=== PATIENT | male | born 1960 | race Caucasian/White ===

== ENCOUNTER 2016-09-11 16:57 | Inpatient (IN) ==
[2016-09-11] MEDS ORDERED: *HR* Morphine 2 MG/ML SYRINGE IVP PRN (19:21)
[2016-09-11] MEDS ORDERED: Ondansetron 4 MG/2 ML VIAL IVP PRN ×2 (19:23→23:58)
[2016-09-11] MEDS ORDERED: 0.9 % Sodium Chloride 1,000 ML IVC SCH ×3 (19:30→23:58)
[2016-09-11] MEDS ORDERED: Acetaminophen IV 1,000 MG/100 ML INFUS..BTL IVPB ONE (20:01)
--- NOTE | 2016-09-11 21:49 | General Surg History&Physical ---
Date of Encounter: 09/11/16 Time of Encounter: 21:47 Assessment and Plan (1) Acute appendicitis Current Visit: No Status: Acute Plan for laparoscopic appendectomy. Risks, benefits, and expected outcomes explained to the patient and he agrees to proceed. The assessment and plan as outlined above was discussed with the patient and/or family members who expressed understanding and agreement. All questions were answered. Qualifiers: Qualified Code(s): K35.3 - Acute appendicitis with localized peritonitis History of Present Illness HPI: Mr. Posada is a 56 year old male that presents to the emergency department with 34 hours of right lower quadrant abdominal pain. He reports pain with coughing and any movement around his pelvis. He also admits to fever of 102. He denies any appetite at this point. He denies any nausea. He denies any emesis. His pain is moderate to severe and is sharp and aching in his right lower quadrant and the suprapubic region. Past Med Surg Social Fam HX - Past Medical History Medical history: hypertension Psychiatric history: no psych history - Past Surgical History Surgical History: other (Bilateral inguinal hernia as a child) - Social History Smoking Status: Never smoker Smokeless Tobacco Status: No Alcohol use: occasionally Drug use: none - Family History Mother Living Status: Still Living Hx Family Musculoskeletal Disorders: Yes (Arthritis) Hx Family Neurologic Disorders: Yes (Parkinsons) Medications and Allergies Valsartan [Diovan] 40 mg PO 02/14/16 [History] Allergies No Known Allergies Allergy (Verified 09/11/16 15:35) Review of Systems All systems PM: reviewed and no additional remarkable complaints except as stated All systems PM: A 10-system review of systems was performed and is negative for pertinent findings except as documented above in the HPI. General Surgery Exam Initial Vital Signs Temp Pulse Resp BP Pulse Ox 102.9 F H 98 14 166/108 100 09/11/16 19:13 09/11/16 19:13 09/11/16 19:13 09/11/16 19:13 09/11/16 19:13 - General physical appearance well nourished, no distress - Eyes PERRL, normal ocular movement - Neck no masses, trachea midline - Respiratory normal expansion, normal respiratory effort - Cardiovascular Cardiovascular exam: Present: RRR - Abdomen Abdomen general surgery: Present: soft, tender Abdominal Tenderness: Present: RLQ - Integumentary Integumentary general surgery: Present: warm and dry, no abnormal pigmentation - Neurologic Present: CN 2-12 grossly intact, normal sensation Results - Labs All other labs normal. - Imaging CT scan - abdomen: image reviewed CT scan - pelvis: image reviewed
[2016-09-11] MEDS ORDERED: *HR* Promethazine 25 MG/ML VIAL IVP PRN ×2 (21:51→23:58)
[2016-09-11] MEDS ORDERED: *HR* HYDROmorphone (PF) 1 MG/ML SYRINGE IVP PRN (21:51)
--- NOTE | 2016-09-11 21:54 | Anesthesia Evaluation PreOp ---
Date of Encounter: 09/11/16 Time of Encounter: 22:00 - Past History Planned Operation: Lap Appendectomy Cardiac History: HTN Pulmonary History: Denies Any Significant HX TURBINE ROOM ATTENDANT History: Denies Any Significant HX Other Medical History: Denies Any Significant HX Anesthesia History: No Prior Anesthetic Complications Alcohol Use: occasionally Drug use: none Medications and Allergies Valsartan [Diovan] 40 mg PO 02/14/16 [History] Allergies No Known Allergies Allergy (Verified 09/11/16 15:35) - Meds/Allergy Pre-op Review Medications Reviewed: Yes Allergies Reviewed: Yes Beta Blockers on Current Med List: No Anesthesia Results - Labs Laboratory Tests 09/11/16 09/11/16 16:16 16:16 Hgb 16.4 Hct 45.0 Plt Count 274 Sodium 140 Potassium 4.1 BUN 11 Creatinine 1.00 Anesthesia Exam O2 Sat Height 1.73 m Weight 81.828 kg O2 Sat by Pulse Oximetry 100 Vital Signs Temp Pulse Resp BP Pulse Ox 102.9 F H 98 14 166/108 100 09/11/16 19:13 09/11/16 19:13 09/11/16 19:13 09/11/16 19:13 09/11/16 19:13 Height: 5'8 Weight: 180 lbs NPO (# of Hours): MN Pain Scale: 0 - HEENT Pupil (Motor): Pupils equal, EOMI Mallampati: II Teeth: Normal Oral Opening: Greater than 3 - TURBINE ROOM ATTENDANT LOC: Oriented TURBINE ROOM ATTENDANT Motor: Normal RUE, Normal LUE, Normal RLE, Normal LLE, Normal Face TURBINE ROOM ATTENDANT Sensory: Normal: RUE, LUE, RLE, LLE, Face - Cardiac Rhythm: Regular Murmur: None JVD: No Carotid Bruit: No - Pulmonary Breath Sounds: bilateral Clear Respiratory Effort: Symmetrical Anesthesia Assess/Plan ASA Score: 2, E Modified [place] Scale for Level of Consciousness: Cooperative, oriented, and tranquil Anesthetic Plan: General Monitoring Plan: Standard Monitors Recovery Plan: PACU (Discussed GA, agrees to proceed)
[2016-09-11] MEDS ORDERED: *HR* Rocuronium Bromide 50 MG/5 ML VIAL ONE (21:59)
[2016-09-11] MEDS ORDERED: Lidocaine -MPF 2% 2 ML VIAL ONE (21:59)
[2016-09-11] MEDS ORDERED: Dexamethasone 4 MG/ML VIAL ONE (21:59)
[2016-09-11] MEDS ORDERED: Ondansetron 4 MG/2 ML VIAL ONE (21:59)
[2016-09-11] MEDS ORDERED: *HR* Succinylcholine 200 MG/10 ML VIAL IVP ONE (21:59)
[2016-09-11] MEDS ORDERED: *HR* HYDROmorphone 2 MG/ML SYRINGE ONE (21:59)
[2016-09-11] MEDS ORDERED: *HR* Propofol 200 MG/20 ML VIAL IVP ONE (21:59)
[2016-09-11] MEDS ORDERED: *HR* FentaNYL (PF) 100 MCG/2 ML VIAL ONE (21:59)
[2016-09-11] MEDS ORDERED: Lidocaine -MPF 4% 5 ML AMPUL ONE (22:01)
[2016-09-11] MEDS ORDERED: CefOXitin 2,000 MG VIAL IVPB ONE (22:09)
[2016-09-11] MEDS ORDERED: Neostigmine Methylsulfate 3 MG/3 ML SYRINGE ONE (22:51)
[2016-09-11] MEDS ORDERED: Ketorolac 30 MG/ML VIAL ONE (22:56)
--- NOTE | 2016-09-11 23:05 | Operative Note ---
Date of procedure: 09/11/16 Pre-op diagnosis: appendicitis Post-op diagnosis: same Procedure: laparoscopic appendectomy Anesthesia: FREDRICK Surgeon: Shahid Holman Estimated blood loss (cc): 125 Specimen: appendix Condition: stable Disposition: same day Procedure in Detail: After informed consent, patient was taken to the operating room placed in supine position. After adequate sedation anesthesia the abdomen was prepped and draped. A 12 mm cannula was placed in the umbilicus. A 5 mm cannulas placed in suprapubic region and the left lower quadrant. Camera was inserted and the abdomen after a pneumoperitoneum. 2 Mele graspers were used to identify the base of the appendix. A appendiceal window was created. A JHONY endoscopic stapler was placed across the base. A vascular load was placed across the mesoappendix. Once the appendix was was placed in an Endobag and removed through the umbilicus. The right lower quadrant was suctioned dry no bleeding was identified. Remainder the pneumoperitoneum was evacuated. The umbilicus was closed with an 0 Vicryl suture in [id number] fashion. Skin was closed with 4-0 Vicryl suture and Dermabond.
--- NOTE | 2016-09-11 23:26 | Anesthesia Evaluation Post Op ---
Date of Encounter: 09/11/16 Time of Encounter: 23:30 - Vital Signs Vital Signs: Vital Signs/O2 Sat/Glucose, Most Current Temp Pulse Resp BP Pulse Ox 09/11/16 23:12 98.8 F 87 15 135/92 96 - Lungs Lungs: Clear Ascult./Percussion - Airway Airway: Non-obstructed - Cardiovascular Regular Rate - Mental Status Mental Status: Alert & Oriented, Answers Appropriately - Pain Pain Scale: 0 - Nausea Vomiting Nausea Vomiting: Not Present - Hydration Hydration: Ice chips - Discharge PostOp Status: Transfer Patient to floor
[2016-09-12] MEDS ORDERED: Ketorolac 15 MG/ML VIAL IVP SCH
[2016-09-12] MEDS ORDERED: cefOXitin 2,000 MG in D5% in Water (Mini-Bag+) 100 ML IVPB SCH ×2
[2016-09-12] MEDS: Ketorolac 15 MG/ML VIAL IVP SCH ×2 (01:16→05:38)
[2016-09-12] MEDS: 0.9 % Sodium Chloride 1,000 ML IVC SCH ×2 (01:17→17:29)
[2016-09-12] MEDS ORDERED: 0.9 % Sodium Chloride 1,000 ML IVC ONE (03:46)
[2016-09-12] MEDS: Pantoprazole 40 MG VIAL IVP SCH (05:38)
[2016-09-12] MEDS ORDERED: Pantoprazole 40 MG VIAL IVP SCH (06:30)
--- NOTE | 2016-09-12 07:59 | General Surgery Progress Note ---
Date of Encounter: 09/12/16 Time of Encounter: 07:56 - Assessment and Plan (1) Acute appendicitis Current Visit: No Status: Acute Postop day 1 status post Laparoscopic Appendectomy Pain is well controlled at this time - Dilaudid - D/c toradol d/t rise in Cr since baseline prior to surgery Nothing by mouth except ice chips Faint BS on exam today but did have minimal flatus early in the morning. Will monitor for bowel function and progress as appropriate IV Cefoxitin IV fluids at 80 mL per hour Encouraged ICS and ambulation as tolerated. MAGI drain to bulb suction - 820 since yesterday - Bulb suction output is greater than 150 per hour then drain, and keep inflated on decompression Supportive care and management. Discharge planning- home once pain is well controlled, bowel function returns and is tolerating regular diet. Qualifiers: Acute appendicitis type: with localized peritonitis Qualified Code(s): K35.3 - Acute appendicitis with localized peritonitis (2) Hypotension Current Visit: Yes Status: Acute Over the night, patient became hypotensive with blood pressure of 75/54 and a pulse of 99. He was transferred to [facility] for monitoring with telemetry. He was bolused 1 L of normal saline with mild improvement. Blood pressure is 114/75 this morning. Asymptomatic at this time. Qualifiers: Hypotension type: unspecified hypotension type Qualified Code(s): I95.9 - Hypotension, unspecified (3) Leukocytosis Current Visit: Yes Status: Acute WBC today 14.8. Patient still on Cefoxitin Likely reflective of his acute appendicitis and surgical response Qualifiers: Leukocytosis type: unspecified Qualified Code(s): D72.829 - Elevated white blood cell count, unspecified (4) Abdominal pain Current Visit: No Status: Acute See above. Qualifiers: Abdominal location: lower abdomen, unspecified Qualified Code(s): R10.30 - Lower abdominal pain, unspecified Subjective Patient reports: feels better, pain is less, flatus, no bowel movement, afebrile Narrative: Patient is resting currently this morning with what bedside. Last night patient expressed a blood pressure 75/54 with a pulse of 99 was transferred down to [address] [place] [address] on telemetry. He is bolused 1 L normal saline. BP improved to 93/64. Denies any CP, SOB, n/v, lightheadedness. Objective Vital Signs - Last 8 Hours Temp Pulse Resp BP Pulse Ox 09/12/16 07:02 98.5 F 99 16 90/65 99 09/12/16 05:24 99.2 F 99 85/63 98 09/12/16 04:35 98.6 F 99 14 93/64 95 09/12/16 03:30 98.0 F 98 14 75/54 09/12/16 02:07 98.8 F 108 14 94/64 96 09/12/16 01:00 98.3 F 112 14 102/70 95 09/12/16 00:27 99.4 F 103 16 102/88 95 09/12/16 00:04 99.2 F 98 16 114/76 95 Intake and Output 09/11/16 09/11/16 09/12/16 15:59 23:59 07:59 Intake Total 100 / 100 1000 / 1000 Output Total 265 / 265 870 / 870 Balance -165 / -165 130 / 130 Intake: IV Fluids 100 / 100 1000 / 1000 0.9 % Sodium Chloride 1, 1000 / 1000 000 ML @ 80 mls/hr IVC . [id number] [facility] Rx#: [id number] Mefoxin 2,000 MG In 100 / 100 Dextrose 5% (Minibag+) 100 ML 100 ML @ 200 mls/ hr IVPB Q8HR [facility] Rx#: [id number] Oral 0 / 0 0 / 0 Output: Urine 0 / 0 150 / 150 Estimated Blood Loss 125 / 125 Wound Drainage 140 / 140 720 / 720 Left Lower Abdomen 720 / 720 Other: Weight 81.828 kg 82.1 kg Patient Weight 09/12/16 23:59 Weight 82.1 kg - General physical appearance well developed, well nourished, no distress - Eyes normal ocular movement - ENT normal mucosa - Neck Neck exam: trachea midline - Respiratory normal expansion, normal respiratory effort, clear to auscultation - Cardiovascular Cardiovascular exam: Present: RRR, no murmurs/rubs/gallops - Abdomen Abdomen: Present: soft, tender (Incisional. Trochar incisions c/d/i. No erythema or drainagae. MAGI drain intact in LLQ that is decompressed with minimal serosangious fluid. ). Absent: bowel sounds present - Neurologic normal coordination, normal sensation - Psychiatric oriented to time, oriented to person, oriented to place, speech is normal, memory intact - Labs 09/12/16 10:13 09/12/16 10:13 Vital Signs Temp Pulse Resp BP Pulse Ox 09/12/16 07:02 98.5 F 99 16 90/65 99 09/12/16 05:24 99.2 F 99 85/63 98 09/12/16 04:35 98.6 F 99 14 93/64 95 09/12/16 03:30 98.0 F 98 14 75/54 09/12/16 02:07 98.8 F 108 14 94/64 96 09/12/16 01:00 98.3 F 112 14 102/70 95 09/12/16 00:27 99.4 F 103 16 102/88 95 09/12/16 00:04 99.2 F 98 16 114/76 95 09/11/16 23:42 100.0 F H 98 16 106/81 93 09/11/16 23:32 98 16 119/82 94 09/11/16 23:22 102 16 124/74 94 09/11/16 23:12 98.8 F 87 15 135/92 96 09/11/16 19:13 102.9 F H 98 14 166/108 100 Intake and Output 09/11/16 09/12/16 09/12/16 23:59 07:59 15:59 Intake Total 100 / 100 1000 / 1000 Output Total 265 / 265 870 / 870 Balance -165 / -165 130 / 130 Intake: IV Fluids 100 / 100 1000 / 1000 0.9 % Sodium Chloride 1, 1000 / 1000 000 ML @ 80 mls/hr IVC . [id number] [facility] Rx#: [id number] Mefoxin 2,000 MG In 100 / 100 Dextrose 5% (Minibag+) 100 ML 100 ML @ 200 mls/ hr IVPB Q8HR [facility] Rx#: [id number] Oral 0 / 0 0 / 0 Output: Urine 0 / 0 150 / 150 Estimated Blood Loss 125 / 125 Wound Drainage 140 / 140 720 / 720 Left Lower Abdomen 720 / 720 Other: Weight 81.828 kg 82.1 kg Patient Weight 09/12/16 23:59 Weight 82.1 kg Consult Discharge Plan - Plan Referrals: Akira Shaffer MD [Primary Care Provider] -
[2016-09-12] MEDS: cefOXitin 2,000 MG in D5% in Water (Mini-Bag+) 100 ML IVPB SCH ×3 (08:15→23:18)
[2016-09-12] MEDS: *HR* HYDROmorphone (PF) 1 MG/ML SYRINGE IVP PRN ×2 (10:17→19:39)
[2016-09-12 10:21] LABS: Basophils % 0.1 %; Hematocrit 29.9 % (37.5-50.1); Hemoglobin 10.3 g/dL (12.9-16.9); Immature Granulocytes % 0.6 % (0-4); Lymphocytes % 6.7 %; Mean Corpuscular HGB Conc 34.4 g/dL (31.6-35.5); Mean Corpuscular Hemoglobin 31.8 pg (28.0-33.3); Mean Corpuscular Volume 92.3 fL (83.0-100.0); Mean Platelet Volume 9.7 fL (9.4-12.4); Monocytes # 0.9 K/mcL (0.0-1.3); Monocytes % 6.3 %; Neutrophils # 12.8 K/mcL (1.6-8.9); Platelet Count 221 K/mcL (140-400); Red Blood Count 3.24 M/mcL (4.19-5.50); Segmented Neutrophils % 86.3 %
[2016-09-12 10:32] LABS: BUN/Creatinine Ratio 14 (6-26); Blood Urea Nitrogen 18 mg/dL (8-26); Calcium 7.9 mg/dL (8.6-10.8); Carbon Dioxide 26 mEq/L (19-29); Chloride 108 mEq/L (98-109); Glucose 142 mg/dL (70-99); Osmolality,Calculated 290 (280-300); Potassium 4.6 mEq/L (3.5-4.5); Sodium 138 mEq/L (136-145); eGFR For African Americans > 60 (> 60); eGFR For Non-African Americans 60 (> 60)
[2016-09-12 10:50] LABS: Platelet Estimate Normal (Normal)
[2016-09-12] MEDS: *HR* Morphine 2 MG/ML SYRINGE IVP PRN (15:47)
[2016-09-13 04:34] LABS: Basophils % 0.1 %; Hematocrit 22.9 % (37.5-50.1); Hemoglobin 7.8 g/dL (12.9-16.9); Immature Granulocytes % 0.4 % (0-4); Lymphocytes # 1.1 K/mcL (0.6-4.6); Lymphocytes % 12.3 %; Mean Corpuscular HGB Conc 34.1 g/dL (31.6-35.5); Mean Corpuscular Hemoglobin 32.1 pg (28.0-33.3); Mean Corpuscular Volume 94.2 fL (83.0-100.0); Mean Platelet Volume 10.2 fL (9.4-12.4); Monocytes # 0.7 K/mcL (0.0-1.3); Monocytes % 7.5 %; Neutrophils # 7.3 K/mcL (1.6-8.9); Platelet Count 169 K/mcL (140-400); Red Blood Count 2.43 M/mcL (4.19-5.50); Segmented Neutrophils % 79.7 %
[2016-09-13 04:47] LABS: BUN/Creatinine Ratio 20 (6-26); Blood Urea Nitrogen 19 mg/dL (8-26); Calcium 8.1 mg/dL (8.6-10.8); Carbon Dioxide 28 mEq/L (19-29); Chloride 108 mEq/L (98-109); Glucose 119 mg/dL (70-99); Osmolality,Calculated 287 (280-300); Potassium 4.3 mEq/L (3.5-4.5); Sodium 137 mEq/L (136-145); eGFR For African Americans > 60 (> 60); eGFR For Non-African Americans > 60 (> 60)
[2016-09-13] MEDS: Pantoprazole 40 MG VIAL IVP SCH (06:19)
[2016-09-13] MEDS: *HR* HYDROmorphone (PF) 1 MG/ML SYRINGE IVP PRN (06:19)
[2016-09-13] MEDS: 0.9 % Sodium Chloride 1,000 ML IVC SCH ×3 (06:19→23:10)
[2016-09-13] MEDS: cefOXitin 2,000 MG in D5% in Water (Mini-Bag+) 100 ML IVPB SCH ×3 (06:20→22:13)
--- NOTE | 2016-09-13 10:44 | General Surgery Progress Note ---
Date of Encounter: 09/13/16 Time of Encounter: 10:42 - Assessment and Plan (1) Acute appendicitis Current Visit: No Status: Acute Postop day #2 status post Laparoscopic Appendectomy Pain is well controlled at this time - Dilaudid, Morphine Kidney function returned to baseline with Cr 1.25>0.95 Flatus noted per patient. BS heard on exam today. Will advance diet to clear liquids today. IV fluids at 80 mL per hour Encouraged ICS and ambulation as tolerated. MAGI drain to bulb suction - 440 since yesterday Supportive care and management. Discharge planning- home once pain is well controlled, maintains bowel function and is tolerating regular diet. Qualifiers: Acute appendicitis type: with localized peritonitis Qualified Code(s): K35.3 - Acute appendicitis with localized peritonitis (2) Postoperative anemia Current Visit: Yes Status: Acute Hgb dropped from 10.3->7.8. Asymptomatic at this time. Vital signs stable. Repeat am labs (3) Hypotension Current Visit: Yes Status: Acute Blood pressure is 125/84 this morning. Asymptomatic at this time. Qualifiers: Hypotension type: unspecified hypotension type Qualified Code(s): I95.9 - Hypotension, unspecified (4) Leukocytosis Current Visit: Yes Status: Acute WBC today 14.8>9.2. Will trend. Improving. Qualifiers: Leukocytosis type: unspecified Qualified Code(s): D72.829 - Elevated white blood cell count, unspecified (5) Abdominal pain Current Visit: No Status: Acute See above. Qualifiers: Abdominal location: lower abdomen, unspecified Qualified Code(s): R10.30 - Lower abdominal pain, unspecified Subjective Patient reports: feels better, still having pain, voiding w/o difficulty, flatus , no bowel movement, afebrile Narrative: 440cc out of MAGI overnight Objective Vital Signs - Last 8 Hours Temp Pulse Resp BP Pulse Ox 09/13/16 08:06 97 09/13/16 07:26 98.5 F 97 16 125/84 97 09/13/16 03:16 98.7 F 94 18 116/76 95 Intake and Output 09/12/16 09/13/16 09/13/16 23:59 07:59 15:59 Intake Total 115 / 115 1100 / 1100 Output Total 85 / 85 405 / 405 Balance 695 / 695 Intake: IV Fluids 100 / 100 1100 / 1100 0.9 % Sodium Chloride 1, 1000 / 1000 000 ML @ 80 mls/hr IVC . [id number] [facility] Rx#: [id number] Mefoxin 2,000 MG In 100 / 100 100 / 100 Dextrose 5% (Minibag+) 100 ML 100 ML @ 200 mls/ hr IVPB Q8H [facility] Rx#: [id number] Oral 15 / 15 0 / 0 Output: Urine 0 / 0 400 / 400 Wound Drainage 85 / 85 5 / 5 Left Lower Abdomen 85 / 85 5 / 5 Other: Weight 82.2 kg Blood Glucose* 127 111 Patient Weight 09/13/16 23:59 Weight 82.2 kg - General physical appearance well developed, well nourished, no distress - Eyes normal ocular movement - ENT normal mucosa - Neck Neck exam: trachea midline - Respiratory normal expansion, normal respiratory effort, clear to auscultation - Cardiovascular Cardiovascular exam: Present: RRR - Abdomen Abdomen: Present: bowel sounds present, soft, tender (incisional), wound ( trochar incisions c/d/i. No erythma or drianage. MAGI drain intact in LLQ) Additional Comments: diffuse ecchymosis noted about all abdominal quadrants - Neurologic CN 2-12 grossly intact - Psychiatric oriented to time, oriented to person, oriented to place, speech is normal, memory intact - Labs 09/13/16 04:03 09/13/16 04:03 Short CBC 09/13/16 09/12/16 Range/Units 04:03 10:13 WBC 9.2 (4.3-11.1) K/mcL Hgb 7.8 L D (12.9-16.9) g/dL Hct 22.9 L (37.5-50.1) % Plt Count 169 (140-400) K/mcL Neutrophils # 7.3 12.8 H (1.6-8.9) K/mcL BMP 09/13/16 Range/Units 04:03 Sodium 137 (136-145) mEq/L Potassium 4.3 (3.5-4.5) mEq/L Chloride 108 (98-109) mEq/L Carbon Dioxide 28 (19-29) mEq/L BUN 19 (8-26) mg/dL Creatinine 0.95 (0.72-1.25) mg/dL Glucose 119 H (70-99) mg/dL Calcium 8.1 L (8.6-10.8) mg/dL Vital Signs Temp Pulse Resp BP Pulse Ox 09/13/16 08:06 97 09/13/16 07:26 98.5 F 97 16 125/84 97 09/13/16 03:16 98.7 F 94 18 116/76 95 09/12/16 23:21 98.5 F 95 17 109/75 96 09/12/16 18:49 100.5 F H 106 17 120/78 95 09/12/16 15:57 100.2 F H 110 18 116/80 96 09/12/16 11:50 98.2 F 119 16 110/76 98 Intake and Output 09/12/16 09/13/16 09/13/16 23:59 07:59 15:59 Intake Total 115 / 115 1100 / 1100 Output Total 85 / 85 405 / 405 Balance 30 / 30 695 / 695 Intake: IV Fluids 100 / 100 1100 / 1100 0.9 % Sodium Chloride 1, 1000 / 1000 000 ML @ 80 mls/hr IVC . [id number] [facility] Rx#: [id number] Mefoxin 2,000 MG In 100 / 100 100 / 100 Dextrose 5% (Minibag+) 100 ML 100 ML @ 200 mls/ hr IVPB Q8H [facility] Rx#: [id number] Oral 0 / 0 Output: Urine 0 / 0 400 / 400 Wound Drainage 85 / 85 5 / 5 Left Lower Abdomen 85 / 85 5 / 5 Other: Weight 82.2 kg Blood Glucose* 127 111 Patient Weight 09/13/16 23:59 Weight 82.2 kg - VTE Documentation of Mechanical Device: Intermittent pneumatic compression device Consult Discharge Plan - Plan Referrals: Akira Shaffer MD [Primary Care Provider] -
[2016-09-13] MEDS: *HR* Morphine 2 MG/ML SYRINGE IVP PRN ×2 (14:36→22:13)
--- NOTE | 2016-09-13 15:10 | Electrocardiograph Report ---
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
[2016-09-14] MEDS: cefOXitin 2,000 MG in D5% in Water (Mini-Bag+) 100 ML IVPB SCH ×3 (06:07→23:10)
[2016-09-14] MEDS: Pantoprazole 40 MG VIAL IVP SCH (06:07)
[2016-09-14 06:15] LABS: Basophils % 0.1 %; Eosinophils % 0.6 %; Hematocrit 21.2 % (37.5-50.1); Hemoglobin 7.4 g/dL (12.9-16.9); Immature Granulocytes % 0.6 % (0-4); Lymphocytes # 1.1 K/mcL (0.6-4.6); Mean Corpuscular HGB Conc 34.9 g/dL (31.6-35.5); Mean Corpuscular Hemoglobin 31.9 pg (28.0-33.3); Mean Corpuscular Volume 91.4 fL (83.0-100.0); Mean Platelet Volume 10.2 fL (9.4-12.4); Monocytes # 0.6 K/mcL (0.0-1.3); Monocytes % 8.6 %; Neutrophils # 5.3 K/mcL (1.6-8.9); Platelet Count 182 K/mcL (140-400); Red Blood Count 2.32 M/mcL (4.19-5.50); Red Cell Distribution Width 11.6 % (11.5-14.5); Segmented Neutrophils % 74.1 %
[2016-09-14] MEDS: *HR* HYDROmorphone (PF) 1 MG/ML SYRINGE IVP PRN ×2 (06:18→21:44)
--- NOTE | 2016-09-14 09:47 | General Surgery Progress Note ---
Date of Encounter: 09/14/16 Time of Encounter: 09:30 - Assessment and Plan (1) Acute appendicitis Current Visit: No Status: Acute Postop day #3 status post Laparoscopic Appendectomy Continue supportive care Pain is well controlled at this time - Dilaudid prn Will stop morphine and add PO percocet. Kidney function returned to baseline with Cr 1.25>0.95 Continue IV fluids at 80 mL per hour Encouraged ICS and ambulation as tolerated. Flatus and BM per patient report. Advance diet as tolerated MAGI drain to bulb suction - noted 1155 output over 24 hours Repeat AM labs Discharge planning- home pending clinical course: once pain is well controlled, maintains bowel function, MAGI output is stabilized and is tolerating regular diet. Qualifiers: Acute appendicitis type: with localized peritonitis Qualified Code(s): K35.3 - Acute appendicitis with localized peritonitis (2) Postoperative anemia Current Visit: Yes Status: Acute See plan above. VSS Repeat am labs Will continue to monitor Subjective Patient reports: feels better, still having pain, pain is less, tolerating liquids well (States decreased appetite), voiding w/o difficulty, flatus, bowel movement Objective Vital Signs - Last 8 Hours Temp Pulse Resp BP Pulse Ox 09/14/16 08:00 95 09/14/16 06:30 99.3 F 94 18 130/93 97 09/14/16 04:19 99.2 F 96 16 133/91 95 Intake and Output 09/13/16 09/14/16 09/14/16 23:59 07:59 15:59 Intake Total 1540 / 1540 0 / 0 600 / 600 Output Total 725 / 725 Balance 1515 / 1515 -725 / -725 600 / 600 Intake: IV Fluids 1200 / 1200 0.9 % Sodium Chloride 1, 1000 / 1000 000 ML @ 80 mls/hr IVC . [id number] [facility] Rx#: [id number] Mefoxin 2,000 MG In 200 / 200 Dextrose 5% (Minibag+) 100 ML 100 ML @ 200 mls/ hr IVPB Q8H [facility] Rx#: [id number] Oral 340 / 340 0 / 0 600 / 600 Output: Urine 725 / 725 Wound Drainage Left Lower Abdomen Other: Meal Breakfast Percent of Meal Consumed 100% Stool Size Small Stool Consistency loose Stool Characteristics Mucoid Stool Color Brown # Voids 1 # Bowel Movements 1 Weight 76.1 kg 76.1 kg Blood Glucose* 124 107 Patient Weight 09/14/16 23:59 Weight 76.1 kg - General physical appearance well nourished, no distress (Sitting upright in chair at bedside) - Eyes normal ocular movement - ENT normal mucosa - Neck Neck exam: trachea midline - Respiratory normal expansion, normal respiratory effort, clear to auscultation - Cardiovascular Cardiovascular exam: Present: RRR - Abdomen Abdomen: Present: bowel sounds present, soft, tender (Expected post-operative tenderness) - Incision Incision: Present: clean and dry, intact - Integumentary no rash, no abnormal pigmentation - Neurologic CN 2-12 grossly intact - Musculoskeletal normal posture - Psychiatric oriented to time, oriented to person, oriented to place - Labs 09/14/16 05:38 09/13/16 04:03 - VTE Documentation of Mechanical Device: Intermittent pneumatic compression device Consult Discharge Plan - Plan Additional Instructions: pcp requested Referrals: Akira Shaffer MD [Primary Care Provider] -
[2016-09-14] MEDS: *HR* OxyCODONE/APAP 5/325 TABLET PO PRN (13:03)
[2016-09-14] MEDS: 0.9 % Sodium Chloride 1,000 ML IVC SCH (13:04)
[2016-09-15] MEDS: *HR* OxyCODONE/APAP 5/325 TABLET PO PRN ×3 (01:55→20:19)
[2016-09-15] MEDS: Pantoprazole 40 MG VIAL IVP SCH (05:03)
[2016-09-15] MEDS: *HR* HYDROmorphone (PF) 1 MG/ML SYRINGE IVP PRN ×3 (05:03→22:50)
[2016-09-15] MEDS: 0.9 % Sodium Chloride 1,000 ML IVC SCH ×2 (05:13→16:19)
[2016-09-15 05:48] LABS: Basophils % 0.2 %; Eosinophils # 0.1 K/mcL (0.0-0.6); Eosinophils % 0.9 %; Hematocrit 23.6 % (37.5-50.1); Hemoglobin 8.1 g/dL (12.9-16.9); Immature Granulocytes % 0.8 % (0-4); Lymphocytes # 1.6 K/mcL (0.6-4.6); Lymphocytes % 18.1 %; Mean Corpuscular HGB Conc 34.3 g/dL (31.6-35.5); Mean Corpuscular Hemoglobin 30.7 pg (28.0-33.3); Mean Corpuscular Volume 89.4 fL (83.0-100.0); Mean Platelet Volume 9.5 fL (9.4-12.4); Monocytes % 11.4 %; Neutrophils # 5.9 K/mcL (1.6-8.9); Platelet Count 283 K/mcL (140-400); Red Blood Count 2.64 M/mcL (4.19-5.50); Red Cell Distribution Width 11.4 % (11.5-14.5); Segmented Neutrophils % 68.6 %
[2016-09-15 06:05] LABS: BUN/Creatinine Ratio 8 (6-26); Calcium 8.2 mg/dL (8.6-10.8); Carbon Dioxide 27 mEq/L (19-29); Chloride 101 mEq/L (98-109); Glucose 115 mg/dL (70-99); Osmolality,Calculated 275 (280-300); Potassium 3.5 mEq/L (3.5-4.5); Sodium 133 mEq/L (136-145); eGFR For African Americans > 60 (> 60); eGFR For Non-African Americans > 60 (> 60)
[2016-09-15 06:07] LABS: Blood Urea Nitrogen 7 mg/dL (8-26)
--- NOTE | 2016-09-15 07:50 | General Surgery Progress Note ---
Date of Encounter: 09/15/16 Time of Encounter: 07:47 - Assessment and Plan (1) Acute appendicitis Current Visit: No Status: Acute Postop day #4 status post Laparoscopic Appendectomy Pain is well controlled at this time - Dilaudid, Percocet Kidney function - Cr 0.87 Diet to full liquids. Tolerating well. BM and flatus present IV fluids at 80 mL per hour Encouraged ICS and ambulation as tolerated. MAGI drain to bulb suction - 10cc since last night. Slight change in coloration and heading towards serosanginous Supportive care and management. Discharge planning - Home tomorrow once MAGI drain has appropriate drainage and color and pain is well controlled. Patient is mostly concerned about pain control at this time. Qualifiers: Acute appendicitis type: with localized peritonitis Qualified Code(s): K35.3 - Acute appendicitis with localized peritonitis (2) Postoperative fever Current Visit: Yes Status: Acute Temp 102.5 at 9:30pm last night. Nursing states his sheets were soaked in the middle of the night and this morning his temp is 100.0. Will W&W for now. Concern for possible abscess with the amount of drainage present and timing postoperative. Consider US vs CT if temp rises. (3) Postoperative anemia Current Visit: Yes Status: Acute Improving. Hgb trend from 10.3->7.8>7.4>8.1. Asymptomatic at this time. Vital signs stable. Will continue to follow (4) Hypotension Current Visit: Yes Status: Acute Blood pressure is 126/81 this morning. Asymptomatic at this time. Qualifiers: Hypotension type: unspecified hypotension type Qualified Code(s): I95.9 - Hypotension, unspecified (5) Leukocytosis Current Visit: Yes Status: Acute Resolved. Qualifiers: Leukocytosis type: unspecified Qualified Code(s): D72.829 - Elevated white blood cell count, unspecified (6) Abdominal pain Current Visit: No Status: Acute See above. Qualifiers: Abdominal location: lower abdomen, unspecified Qualified Code(s): R10.30 - Lower abdominal pain, unspecified Subjective Patient reports: feels better, still having pain, tolerating liquids well, voiding w/o difficulty, flatus, bowel movement, fever (102.5 last night) Narrative: MAGI drain with 10 mL output overnight Objective Vital Signs - Last 8 Hours Temp Pulse Resp BP Pulse Ox 09/15/16 06:24 100 F H 105 18 126/81 96 09/15/16 03:45 99.6 F 102 16 122/84 97 09/15/16 00:24 102.1 F H 104 16 128/90 95 Intake and Output 09/14/16 09/14/16 09/15/16 15:59 23:59 07:59 Intake Total 1979 / 1979 200 / 200 1000 / 1000 Output Total 226 / 226 0 / 0 Balance 1754 / 1754 200 / 200 990 / 990 Intake: IV Fluids 1100 / 1100 200 / 200 1000 / 1000 0.9 % Sodium Chloride 1, 1000 / 1000 1000 / 1000 000 ML @ 80 mls/hr IVC . [id number] DIPTI Rx#: [id number] Mefoxin 2,000 MG In 100 / 100 200 / 200 Dextrose 5% (Minibag+) 100 ML 100 ML @ 200 mls/ hr IVPB Q8H DIPTI Rx#: [id number] Oral 880 / 880 0 / 0 0 / 0 Output: Urine 200 / 200 Wound Drainage 0 / 0 Left Lower Abdomen 0 / 0 Other: Meal Lunch Percent of Meal Consumed 75% # Voids 0 0 Weight 76.1 kg 76.5 kg Blood Glucose* 109 112 110 Patient Weight 09/15/16 23:59 Weight 76.5 kg - General physical appearance well developed, well nourished, no distress - Eyes normal ocular movement - ENT normal mucosa - Neck Neck exam: trachea midline - Respiratory normal expansion, normal respiratory effort, clear to auscultation - Cardiovascular Cardiovascular exam: Present: RRR - Abdomen Abdomen: Present: bowel sounds present, soft, tender (Incisional), wound ( Midline incision - clean dry and intact. No erythema or drainage. MAGI drain presentin LLQ) - Integumentary other (scattered ecchymosis present about abdomen) - Neurologic CN 2-12 grossly intact - Psychiatric oriented to time, oriented to person, oriented to place, speech is normal, memory intact - Labs 09/15/16 05:18 09/15/16 05:18 Short CBC 09/15/16 Range/Units 05:18 WBC 8.6 (4.3-11.1) K/mcL Hgb 8.1 L (12.9-16.9) g/dL Hct 23.6 L (37.5-50.1) % Plt Count 283 D (140-400) K/mcL Neutrophils # 5.9 (1.6-8.9) K/mcL BMP 09/15/16 Range/Units 05:18 Sodium 133 L (136-145) mEq/L Potassium 3.5 (3.5-4.5) mEq/L Chloride 101 (98-109) mEq/L Carbon Dioxide 27 (19-29) mEq/L BUN 7 L D (8-26) mg/dL Creatinine 0.87 (0.72-1.25) mg/dL Glucose 115 H (70-99) mg/dL Calcium 8.2 L (8.6-10.8) mg/dL Vital Signs Temp Pulse Resp BP Pulse Ox 09/15/16 06:24 100 F H 105 18 126/81 96 09/15/16 03:45 99.6 F 102 16 122/84 97 09/15/16 00:24 102.1 F H 104 16 128/90 95 09/14/16 21:32 102.5 F H 109 18 135/91 99 09/14/16 16:42 99.9 F H 96 20 98 09/14/16 08:00 95 Intake and Output 09/14/16 09/14/16 09/15/16 15:59 23:59 07:59 Intake Total 1979 200 / 200 1000 / 1000 Output Total 226 / 226 0 / 0 Balance 1754 / 1754 200 / 200 990 / 990 Intake: IV Fluids 1100 / 1100 200 / 200 1000 / 1000 0.9 % Sodium Chloride 1, 1000 / 1000 1000 / 1000 000 ML @ 80 mls/hr IVC . [id number] DIPTI Rx#: [id number] Mefoxin 2,000 MG In 100 / 100 200 / 200 Dextrose 5% (Minibag+) 100 ML 100 ML @ 200 mls/ hr IVPB Q8H DIPTI Rx#: [id number] Oral 880 / 880 0 / 0 0 / 0 Output: Urine 200 / 200 Wound Drainage 0 / 0 Left Lower Abdomen 0 / 0 Other: Meal Lunch Percent of Meal Consumed 75% # Voids 0 0 Weight 76.1 kg 76.5 kg Blood Glucose* 109 112 110 Patient Weight 09/15/16 23:59 Weight 76.5 kg - VTE Documentation of Mechanical Device: Intermittent pneumatic compression device Consult Discharge Plan - Plan Additional Instructions: pcp requested Referrals: Jacqueline Aparicio CNP [Advanced Practice Nurse] - 09/20/16 10:30 am Akira Shaffer MD [Primary Care Provider] - 12/13/16 1:00 pm (,s)
[2016-09-15] MEDS: cefOXitin 2,000 MG in D5% in Water (Mini-Bag+) 100 ML IVPB SCH ×2 (08:08→16:13)
[2016-09-15] MEDS ORDERED: Ibuprofen 600 MG TABLET PO PRN (12:14)
[2016-09-15] MEDS: Ibuprofen 600 MG TABLET PO SCH (22:50)
[2016-09-16] MEDS: cefOXitin 2,000 MG in D5% in Water (Mini-Bag+) 100 ML IVPB SCH ×2 (00:50→06:19)
[2016-09-16] MEDS: *HR* OxyCODONE/APAP 5/325 TABLET PO PRN ×4 (01:20→20:50)
[2016-09-16] MEDS: Pantoprazole 40 MG VIAL IVP SCH (06:18)
[2016-09-16] MEDS: 0.9 % Sodium Chloride 1,000 ML IVC SCH (06:30)
[2016-09-16 07:02] LABS: BUN/Creatinine Ratio 9 (6-26); Blood Urea Nitrogen 8 mg/dL (8-26); Calcium 8.5 mg/dL (8.6-10.8); Carbon Dioxide 29 mEq/L (19-29); Chloride 102 mEq/L (98-109); Glucose 121 mg/dL (70-99); Osmolality,Calculated 282 (280-300); Potassium 3.7 mEq/L (3.5-4.5); Sodium 136 mEq/L (136-145); eGFR For African Americans > 60 (> 60); eGFR For Non-African Americans > 60 (> 60)
[2016-09-16 07:03] LABS: Basophils % 0.2 %; Eosinophils # 0.1 K/mcL (0.0-0.6); Eosinophils % 0.8 %; Hematocrit 22.2 % (37.5-50.1); Hemoglobin 7.9 g/dL (12.9-16.9); Immature Granulocytes % 0.5 % (0-4); Lymphocytes # 0.9 K/mcL (0.6-4.6); Lymphocytes % 7.2 %; Mean Corpuscular HGB Conc 35.6 g/dL (31.6-35.5); Mean Corpuscular Hemoglobin 31.7 pg (28.0-33.3); Mean Corpuscular Volume 89.2 fL (83.0-100.0); Mean Platelet Volume 9.8 fL (9.4-12.4); Monocytes # 1.3 K/mcL (0.0-1.3); Neutrophils # 9.5 K/mcL (1.6-8.9); Platelet Count 310 K/mcL (140-400); Red Blood Count 2.49 M/mcL (4.19-5.50); Red Cell Distribution Width 11.6 % (11.5-14.5); Segmented Neutrophils % 80.3 %
[2016-09-16] MEDS: Ibuprofen 600 MG TABLET PO SCH ×3 (09:31→23:47)
--- NOTE | 2016-09-16 11:37 | General Surgery Progress Note ---
Date of Encounter: 09/16/16 Time of Encounter: 10:30 - Assessment and Plan (1) Acute appendicitis Current Visit: No Status: Acute Postop day #5 status post Laparoscopic Appendectomy Pain is well controlled at this time - Dilaudid, Percocet Kidney function - Cr 0.85 Diet to advanced soft. Tolerating well. BM and flatus present IV fluids at 80 mL per hour Encouraged ICS and ambulation as tolerated. MAGI drain to bulb suction - 25cc since last night. Supportive care and management. Repeat am labs CT of the abdomen and pelvis with IV contrast on 09/16/2016 demonstrates the MAGI drain extending into the right lower quadrant of the abdomen. Areas of hemorrhage were noted in the right lower quadrant, right side of the pelvis, as well as a focal hematoma along the left mid abdomen measuring 6.1 x 4.3 cm. There is also a leak of contrast from the loop of small bowel in the right lower quadrant of the abdomen that is concerning for a small bowel injury. At this point, with the presence of a fever, leukocytosis and intra-abdominal hematomas present on POD#5, I am suspicious for possible infected hematoma. Will discontinue cefoxitin and begin Cipro and Flagyl. In the setting of a possible small bowel perforation, we will proceed with a short window of observation with conservative management to include serial abdominal exams to look for progressively worsening abdominal pain, hemodynamic instability or intolerance of oral intake. Qualifiers: Acute appendicitis type: with localized peritonitis Qualified Code(s): K35.3 - Acute appendicitis with localized peritonitis (2) Postoperative fever Current Visit: Yes Status: Acute Temperature 2 nights ago was 102.5 and resolved in the morning. Again, patient experienced a spike in temperature to 12.1 last night and has resolved. (3) Postoperative anemia Current Visit: Yes Status: Acute Hgb trend from 10.3->7.8>7.4>8.1>7.9. Asymptomatic at this time. Vital signs stable. Will continue to follow (4) Hypotension Current Visit: Yes Status: Acute Blood pressure well controlled. Asymptomatic at this time. Qualifiers: Hypotension type: unspecified hypotension type Qualified Code(s): I95.9 - Hypotension, unspecified (5) Leukocytosis Current Visit: Yes Status: Acute Trending up today 8.6>11.8. See above. Qualifiers: Leukocytosis type: unspecified Qualified Code(s): D72.829 - Elevated white blood cell count, unspecified (6) Abdominal pain Current Visit: No Status: Acute See above. Qualifiers: Abdominal location: lower abdomen, unspecified Qualified Code(s): R10.30 - Lower abdominal pain, unspecified Subjective Patient reports: feels better, still having pain, tolerating a regular diet ( advanced soft), flatus, bowel movement (one yesterday), fever (102.1 last night. 97.9 this morning) Objective Vital Signs - Last 8 Hours Temp Pulse Resp BP Pulse Ox 09/16/16 06:52 97.9 F 96 17 102/69 97 09/16/16 04:00 98.4 F 101 17 143/97 Intake and Output 09/15/16 09/16/16 09/16/16 23:59 07:59 15:59 Intake Total 1940 / 1940 1300 / 1300 Output Total 777 / 777 749 / 749 49 / 49 Balance 1163 / 1163 551 / 551 -49 / -49 Intake: IV Fluids 1100 / 1100 1100 / 1100 0.9 % Sodium Chloride 1, 1000 / 1000 1000 / 1000 000 ML @ 80 mls/hr IVC . [id number] DIPTI Rx#: [id number] Mefoxin 2,000 MG In 100 / 100 100 / 100 Dextrose 5% (Minibag+) 100 ML 100 ML @ 200 mls/ hr IVPB Q8H DIPTI Rx#: [id number] Oral 840 / 840 200 / 200 Output: Urine 700 / 700 725 / 725 Wound Drainage 49 / 49 Left Lower Abdomen 49 49 Other: Meal Dinner Percent of Meal Consumed 70% # Voids 1 Weight 84.6 kg Blood Glucose* 134 116 136 Patient Weight 09/16/16 23:59 Weight 84.6 kg - General physical appearance well developed, well nourished, no distress - Eyes normal ocular movement - ENT normal mucosa - Neck Neck exam: trachea midline, no lymphadectomy - Respiratory normal expansion, normal respiratory effort, clear to auscultation - Cardiovascular Cardiovascular exam: Present: RRR - Abdomen Abdomen: Present: bowel sounds present, soft, tender (RLQ, ecchymosis improved throghout abdomen), wound (MAGI drain present and intact. 25 output since last night) - Incision Incision: Present: clean and dry, intact - Neurologic CN 2-12 grossly intact - Labs 09/16/16 06:01 09/16/16 06:01 Diabetes panel 09/16/16 Range/Units 06:01 Sodium 136 (136-145) mEq/L Potassium 3.7 (3.5-4.5) mEq/L Chloride 102 (98-109) mEq/L Carbon Dioxide 29 (19-29) mEq/L BUN 8 (8-26) mg/dL Creatinine 0.85 (0.72-1.25) mg/dL Glucose 121 H (70-99) mg/dL Calcium 8.5 L (8.6-10.8) mg/dL Calcium panel 09/16/16 Range/Units 06:01 Calcium 8.5 L (8.6-10.8) mg/dL Pituitary panel 09/16/16 Range/Units 06:01 Sodium 136 (136-145) mEq/L Potassium 3.7 (3.5-4.5) mEq/L Chloride 102 (98-109) mEq/L Carbon Dioxide 29 (19-29) mEq/L BUN 8 (8-26) mg/dL Creatinine 0.85 (0.72-1.25) mg/dL Glucose 121 H (70-99) mg/dL Calcium 8.5 L (8.6-10.8) mg/dL Adrenal panel 09/16/16 Range/Units 06:01 Sodium 136 (136-145) mEq/L Potassium 3.7 (3.5-4.5) mEq/L Chloride 102 (98-109) mEq/L Carbon Dioxide 29 (19-29) mEq/L BUN 8 (8-26) mg/dL Creatinine 0.85 (0.72-1.25) mg/dL Glucose 121 H (70-99) mg/dL Calcium 8.5 L (8.6-10.8) mg/dL - VTE Documentation of Mechanical Device: Intermittent pneumatic compression device Consult Discharge Plan - Plan Additional Instructions: pcp requested Referrals: Jacqueline Aparicio CNP [Advanced Practice Nurse] - 09/20/16 10:30 am Akira Shaffer MD [Primary Care Provider] - 12/13/16 1:00 pm (,s)
[2016-09-16] MEDS: MetroNIDAZOLE 500 MG/100 ML 500 MG/100 ML BAG IVPB SCH ×2 (16:41→23:47)
[2016-09-17] MEDS: *HR* OxyCODONE/APAP 5/325 TABLET PO PRN ×4 (04:05→18:41)
[2016-09-17] MEDS: Pantoprazole 40 MG VIAL IVP SCH (05:53)
[2016-09-17 06:11] LABS: Basophils % 0.1 %; Eosinophils # 0.1 K/mcL (0.0-0.6); Eosinophils % 0.8 %; Hematocrit 21.5 % (37.5-50.1); Hemoglobin 7.5 g/dL (12.9-16.9); Immature Granulocytes % 1.1 % (0-4); Lymphocytes # 0.9 K/mcL (0.6-4.6); Lymphocytes % 7.3 %; Mean Corpuscular HGB Conc 34.9 g/dL (31.6-35.5); Mean Corpuscular Hemoglobin 31.3 pg (28.0-33.3); Mean Corpuscular Volume 89.6 fL (83.0-100.0); Mean Platelet Volume 9.4 fL (9.4-12.4); Monocytes # 1.1 K/mcL (0.0-1.3); Monocytes % 8.5 %; Neutrophils # 10.6 K/mcL (1.6-8.9); Platelet Count 367 K/mcL (140-400); Red Cell Distribution Width 11.8 % (11.5-14.5); Segmented Neutrophils % 82.2 %
[2016-09-17 06:16] LABS: BUN/Creatinine Ratio 10 (6-26); Blood Urea Nitrogen 8 mg/dL (8-26); Calcium 8.5 mg/dL (8.6-10.8); Carbon Dioxide 25 mEq/L (19-29); Chloride 103 mEq/L (98-109); Glucose 109 mg/dL (70-99); Osmolality,Calculated 281 (280-300); Potassium 3.8 mEq/L (3.5-4.5); Sodium 136 mEq/L (136-145); eGFR For African Americans > 60 (> 60); eGFR For Non-African Americans > 60 (> 60)
[2016-09-17] MEDS ORDERED: Fluconazole 200 MG/100 ML 200 MG/100 ML BAG IVPB ONE ×2 (08:10→08:30)
[2016-09-17] MEDS: Ibuprofen 600 MG TABLET PO SCH ×3 (08:14→23:17)
[2016-09-17] MEDS: MetroNIDAZOLE 500 MG/100 ML 500 MG/100 ML BAG IVPB SCH ×3 (08:15→23:17)
--- NOTE | 2016-09-17 08:17 | General Surgery Progress Note ---
Date of Encounter: 09/17/16 Time of Encounter: 07:30 - Assessment and Plan (1) Acute appendicitis Current Visit: Yes Status: Acute Postop day #6 status post Laparoscopic Appendectomy Continue supportive care -Pain is well controlled at this time - Ibuprofen (fevers) and percocet -Add Diflucan 200 mg x1 today and 100 mg 09/18/2016 -PICC today and start TPN today -D/C maintenance IVF when TPN at goal -Continue MAGI drain to bulb suction Repeat AM labs Encouraged ICS and ambulation as tolerated. Will transfer to D/c telemetry Discharge planning- home pending clinical course: once pain is well controlled, maintains bowel function, MAGI output is stabilized and is tolerating regular diet. Qualifiers: Acute appendicitis type: with localized peritonitis Qualified Code(s): K35.3 - Acute appendicitis with localized peritonitis (2) Postoperative anemia Current Visit: Yes Status: Acute See plan above. VSS Repeat am labs Will continue to monitor (3) At risk for nutrition deficiency Current Visit: Yes Status: Acute Postop day #6 status post Laparoscopic Appendectomy Continue supportive care: pt denies appetite at this time. Will add parental nutrition -PICC today and start TPN today -D/C maintenance IVF when TPN at goal Repeat AM labs (4) Depressed mood Current Visit: Yes Status: Acute Begin celexa 20 mg today Subjective Patient reports: feels better, still having pain, pain is less, flatus, bowel movement, other (Denies appetite. Is tearful. States he has some intermittent depression for which he takes no medications.) Objective Vital Signs - Last 8 Hours Temp Pulse Resp BP Pulse Ox 09/17/16 07:00 99.2 F 107 16 114/74 98 09/17/16 04:26 98.2 F 103 16 110/66 98 Intake and Output 09/16/16 09/17/16 09/17/16 23:59 07:59 15:59 Intake Total 100 / 100 Output Total Balance 95 / 95 -55 / -55 Intake: IV Fluids 100 / 100 Flagyl Premix 500 MG/100 100 / 100 ML 500 mg In 100 ml @ 100 mls/hr IVPB Q8HR DIPTI Rx# :[id number] Output: Wound Drainage Left Lower Abdomen Other: Weight 87.1 kg Blood Glucose* 107 112 Patient Weight 09/17/16 23:59 Weight 87.1 kg - General physical appearance well developed, no distress, moderate pain - Eyes normal ocular movement - ENT normal mucosa - Neck Neck exam: trachea midline - Respiratory normal expansion, normal respiratory effort, clear to auscultation - Cardiovascular Cardiovascular exam: Present: tachycardia, regular rhythm - Abdomen Abdomen: Present: bowel sounds present, soft, tender (RLQ sharp), wound (MAGI drain with bloody output) - Incision Incision: Present: clean and dry, intact - Integumentary no rash - Neurologic CN 2-12 grossly intact - Musculoskeletal normal gait, normal posture - Psychiatric oriented to time, oriented to person, oriented to place - Labs 09/17/16 05:18 09/17/16 05:18 Diabetes panel 09/17/16 Range/Units 05:18 Sodium 136 (136-145) mEq/L Potassium 3.8 (3.5-4.5) mEq/L Chloride 103 (98-109) mEq/L Carbon Dioxide 25 (19-29) mEq/L BUN 8 (8-26) mg/dL Creatinine 0.80 (0.72-1.25) mg/dL Glucose 109 H (70-99) mg/dL Calcium 8.5 L (8.6-10.8) mg/dL Calcium panel 09/17/16 Range/Units 05:18 Calcium 8.5 L (8.6-10.8) mg/dL Pituitary panel 09/17/16 Range/Units 05:18 Sodium 136 (136-145) mEq/L Potassium 3.8 (3.5-4.5) mEq/L Chloride 103 (98-109) mEq/L Carbon Dioxide 25 (19-29) mEq/L BUN 8 (8-26) mg/dL Creatinine 0.80 (0.72-1.25) mg/dL Glucose 109 H (70-99) mg/dL Calcium 8.5 L (8.6-10.8) mg/dL Adrenal panel 09/17/16 Range/Units 05:18 Sodium 136 (136-145) mEq/L Potassium 3.8 (3.5-4.5) mEq/L Chloride 103 (98-109) mEq/L Carbon Dioxide 25 (19-29) mEq/L BUN 8 (8-26) mg/dL Creatinine 0.80 (0.72-1.25) mg/dL Glucose 109 H (70-99) mg/dL Calcium 8.5 L (8.6-10.8) mg/dL - VTE Documentation of Mechanical Device: Intermittent pneumatic compression device Consult Discharge Plan - Plan Additional Instructions: pcp requested Referrals: Jacqueline Aparicio CNP [Advanced Practice Nurse] - 09/20/16 10:30 am Akira Shaffer MD [Primary Care Provider] - 12/13/16 1:00 pm (,s)
[2016-09-17] MEDS ORDERED: D10% in Water 500 ML IVC PRN (09:55)
[2016-09-17] MEDS ORDERED: Lidocaine -MPF 1% 5 ML AMPUL INFILT ONE (10:13)
[2016-09-17 11:42] LABS: Magnesium 1.2 mg/dL (1.6-2.6); Phosphorous 2.5 mg/dL (2.3-4.7)
[2016-09-17] MEDS: 0.9 % Sodium Chloride 1,000 ML IVC SCH (12:14)
[2016-09-17] MEDS ORDERED: Magnesium Sulfate 2 GM in D5% in Water 100 ML IVPB ONE (13:32)
[2016-09-17] MEDS ORDERED: Clinimix E 5%-20% SOLUTION 2,000 ML with MVI, adult with vitamin K 10 ML IVC SCH (17:00)
[2016-09-18] MEDS: 0.9 % Sodium Chloride 1,000 ML IVC SCH (01:09)
[2016-09-18] MEDS: *HR* OxyCODONE/APAP 5/325 TABLET PO PRN ×4 (04:10→21:55)
[2016-09-18 04:15] LABS: Basophils % 0.1 %; Eosinophils # 0.1 K/mcL (0.0-0.6); Eosinophils % 1.2 %; Hematocrit 20.4 % (37.5-50.1); Hemoglobin 7.2 g/dL (12.9-16.9); Immature Granulocytes % 1.1 % (0-4); Lymphocytes % 8.5 %; Mean Corpuscular HGB Conc 35.3 g/dL (31.6-35.5); Mean Corpuscular Hemoglobin 31.2 pg (28.0-33.3); Mean Corpuscular Volume 88.3 fL (83.0-100.0); Mean Platelet Volume 9.3 fL (9.4-12.4); Monocytes # 0.8 K/mcL (0.0-1.3); Monocytes % 6.5 %; Platelet Count 425 K/mcL (140-400); Red Blood Count 2.31 M/mcL (4.19-5.50); Red Cell Distribution Width 11.9 % (11.5-14.5); Segmented Neutrophils % 82.6 %
[2016-09-18 04:20] LABS: Neutrophils # 9.8 K/mcL (1.6-8.9)
[2016-09-18 04:29] LABS: Magnesium 1.9 mg/dL (1.6-2.6); Phosphorous 3.1 mg/dL (2.3-4.7)
[2016-09-18 04:30] LABS: BUN/Creatinine Ratio 9 (6-26); Blood Urea Nitrogen 7 mg/dL (8-26); Calcium 8.3 mg/dL (8.6-10.8); Carbon Dioxide 27 mEq/L (19-29); Chloride 102 mEq/L (98-109); Glucose 151 mg/dL (70-99); Osmolality,Calculated 283 (280-300); Potassium 3.2 mEq/L (3.5-4.5); Sodium 136 mEq/L (136-145); eGFR For African Americans > 60 (> 60); eGFR For Non-African Americans > 60 (> 60)
[2016-09-18 04:54] LABS: Reactive Lymphocytes Present (Not Present)
[2016-09-18 04:56] LABS: Anisocytosis 1+ (Not Present)
[2016-09-18] MEDS: Pantoprazole 40 MG VIAL IVP SCH (05:17)
[2016-09-18] MEDS: Ibuprofen 600 MG TABLET PO SCH ×2 (07:50→15:38)
[2016-09-18] MEDS: MetroNIDAZOLE 500 MG/100 ML 500 MG/100 ML BAG IVPB SCH ×2 (07:54→16:27)
--- NOTE | 2016-09-18 07:58 | General Surgery Progress Note ---
<Johnnie Avalos - Last Filed: 09/18/16 11:33> Date of Encounter: 09/18/16 Time of Encounter: 07:56 - Assessment and Plan (1) Acute appendicitis Current Visit: Yes Status: Acute Postop day #7 status post Laparoscopic Appendectomy Pain is well controlled at this time - Dilaudid, Percocet Kidney function - Cr 0.78 Patient is on a clear liquid diet and advance as tolerated. Patient did have a bowel movement this morning with bowel sounds on exam today. TPN started yesterday - currently at 50 mL per hour and will increase to 75 tomorrow. Once that target fluids we can stop his IVF Encouraged ICS and ambulation as tolerated. MAGI drain to bulb suction - 60cc since yesterday afternoon. Supportive care and management. Continue to monitor for progressively worsening abdominal pain or hemodynamic instability We will continue Flagyl and Cipro. One-time dose of fluconazole 200 mg followed by scheduled dosing of fluconazole 100 was given Disposition - With patient trending down his leukocytosis and elevated temperatures, along with his present clinical condition, no additional surgical intervention is required such as a second drain placement. We will continue the current treatment plan as we await the return of his appetite to be able to wean off TPN. Qualifiers: Acute appendicitis type: with localized peritonitis Qualified Code(s): K35.3 - Acute appendicitis with localized peritonitis (2) Postoperative fever Current Visit: Yes Status: Acute Temperature is 98.5 this morning with no fever noted last night. Patient did not have excessive diaphoresis (3) Postoperative anemia Current Visit: Yes Status: Acute Hgb trend from 10.3->7.8>7.4>8.1>7.9>7.5>7.2. Asymptomatic at this time and is likely dilution effect from I&Os. Vital signs stable. Will continue to follow (4) Hypotension Current Visit: Yes Status: Acute Blood pressure well controlled. Asymptomatic at this time. Qualifiers: Hypotension type: unspecified hypotension type Qualified Code(s): I95.9 - Hypotension, unspecified (5) Leukocytosis Current Visit: Yes Status: Acute Trending back down 8.6>11.8>12.8>11.8. See above. Qualifiers: Leukocytosis type: unspecified Qualified Code(s): D72.829 - Elevated white blood cell count, unspecified (6) Abdominal pain Current Visit: No Status: Acute See above. Qualifiers: Abdominal location: lower abdomen, unspecified Qualified Code(s): R10.30 - Lower abdominal pain, unspecified (7) Hypokalemia Current Visit: Yes Status: Acute Potassium 2.2 this morning. We will replace with 40 mEq over 4 hours 2 today. Recheck in the morning. Subjective Narrative: Patient was transitioned to 3A yesterday and has no new complaints overnight. He states that he had a bowel movement yesterday. Abdominal pain is still present but slightly better than yesterday. He denies any appetite and "I will throw up if I smell any food". TPN currently at 50. Denies any headache, chest pain, shortness of breath, lightheadedness, difficulty urinating, lower extremity edema or pain. Objective Vital Signs - Last 8 Hours Temp Pulse Resp BP Pulse Ox 09/18/16 07:05 93 09/18/16 06:33 98.5 F 99 16 125/82 93 09/18/16 04:13 98.5 F 97 16 129/81 95 Intake and Output 09/17/16 09/17/16 09/18/16 15:59 23:59 07:59 Intake Total 2660 / 2660 100 / 100 1207 / 1207 Output Total 25 / 25 305 / 305 655 / 655 Balance 2635 / 2635 -205 / -205 552 / 552 Intake: IV Fluids 300 / 300 100 / 100 1207 / 1207 Clinimix E 5%-20% 657 / 657 SOLUTION 2,000 ML @ 50 mls/hr IVC .Q24H DIPTI with M.v.i. Adult 10 ml Rx#: [id number] Cipro Premix 400 MG/200 200 / 200 200 / 200 ML 400 mg In 200 ml @ 200 mls/hr IVPB Q12H DIPTI Rx# :[id number] Intralipid 20% 250 ML @ 250 / 250 21 mls/hr IVPB MoWeFr@ 1700 DIPTI Rx#:[id number] Flagyl Premix 500 MG/100 100 / 100 100 / 100 100 / 100 ML 500 mg In 100 ml @ 100 mls/hr IVPB Q8HR DIPTI Rx# :[id number] Oral 2360 / 2360 0 / 0 0 / 0 Output: Urine 275 / 275 650 / 650 Wound Drainage 5 / 5 Left Lower Abdomen 5 / Other: Meal Breakfast Percent of Meal Consumed 100% # Voids 3 # Bowel Movements 0 Weight 86.7 kg Blood Glucose* 174 186 Patient Weight 09/18/16 23:59 Weight 86.7 kg - General physical appearance well developed, well nourished, no distress - Eyes normal ocular movement - ENT normal mucosa - Neck Neck exam: trachea midline - Respiratory normal expansion, normal respiratory effort, clear to auscultation - Cardiovascular Cardiovascular exam: Present: RRR - Abdomen Abdomen: Present: bowel sounds present, soft, tender (Incisional), wound ( Trocar incisions are clean dry and intact. No evidence of dehiscence, erythema or drainage. MAGI drain is intact and left lower quadrant with dark blood present ) - Neurologic CN 2-12 grossly intact - Psychiatric oriented to time, oriented to person, oriented to place, speech is normal, memory intact - Labs 09/18/16 03:30 09/18/16 03:30 Short CBC 09/18/16 Range/Units 03:30 WBC 11.8 H (4.3-11.1) K/mcL Hgb 7.2 L (12.9-16.9) g/dL Hct 20.4 L (37.5-50.1) % Plt Count 425 H (140-400) K/mcL Neutrophils # 9.8 H (1.6-8.9) K/mcL BMP 09/18/16 Range/Units 03:30 Sodium 136 (136-145) mEq/L Potassium 3.2 L (3.5-4.5) mEq/L Chloride 102 (98-109) mEq/L Carbon Dioxide 27 (19-29) mEq/L BUN 7 L (8-26) mg/dL Creatinine 0.78 (0.72-1.25) mg/dL Glucose 151 H (70-99) mg/dL Calcium 8.3 L (8.6-10.8) mg/dL Vital Signs Temp Pulse Resp BP Pulse Ox 09/18/16 07:05 93 09/18/16 06:33 98.5 F 99 16 125/82 93 09/18/16 04:13 98.5 F 97 16 129/81 95 09/17/16 23:26 98.2 F 101 16 135/83 95 09/17/16 20:49 97 09/17/16 19:05 99.5 F 118 16 138/85 97 09/17/16 15:05 100 16 117/82 98 09/17/16 12:23 98.3 F 103 16 121/78 96 Intake and Output 09/17/16 09/17/16 09/18/16 15:59 23:59 07:59 Intake Total 2660 / 2660 100 / 100 1207 / 1207 Output Total 305 / 305 655 / 655 Balance 2635 / 2635 -205 / -205 552 / 552 Intake: IV Fluids 300 / 300 100 / 100 1207 / 1207 Clinimix E 5%-20% 657 / 657 SOLUTION 2,000 ML @ 50 mls/hr IVC .Q24H DIPTI with M.v.i. Adult 10 ml Rx#: [id number] Cipro Premix 400 MG/200 200 / 200 200 / 200 ML 400 mg In 200 ml @ 200 mls/hr IVPB Q12H DIPTI Rx# :[id number] Intralipid 20% 250 ML @ 250 / 250 21 mls/hr IVPB MoWeFr@ 1700 DIPTI Rx#:[id number] Flagyl Premix 500 MG/100 100 / 100 100 / 100 100 / 100 ML 500 mg In 100 ml @ 100 mls/hr IVPB Q8HR DIPTI Rx# :[id number] Oral 2360 / 2360 0 / 0 0 / 0 Output: Urine 275 / 275 650 / 650 Wound Drainage 30 / 30 5 / 5 Left Lower Abdomen 30 30 5 / 5 Other: Meal Breakfast Percent of Meal Consumed 100% # Voids 3 # Bowel Movements 0 Weight 86.7 kg Blood Glucose* 174 186 Patient Weight 09/18/16 23:59 Weight 86.7 kg - VTE Documentation of Mechanical Device: Intermittent pneumatic compression device Consult Discharge Plan - Plan Additional Instructions: pcp requested Referrals: Jacqueline Aparicio CNP [Advanced Practice Nurse] - 09/20/16 10:30 am Akira Shaffer MD [Primary Care Provider] - 12/13/16 1:00 pm (,s) <Abhilash Nickerson - Last Filed: 09/19/16 12:38> Date of Encounter: 09/19/16 Objective Vital Signs - Last 8 Hours Temp Pulse Resp BP Pulse Ox 09/19/16 10:36 99.2 F 94 16 148/90 97 09/19/16 06:43 99.4 F 101 16 155/94 98 Intake and Output 09/18/16 09/19/16 09/19/16 23:59 07:59 15:59 Intake Total 716 / 716 1637 / 1637 825 / 825 Output Total 1160 / 1160 600 / 600 250 / 250 Balance -444 / -444 1037 / 1037 575 / 575 Intake: IV Fluids 656 / 656 1637 / 1637 465 / 465 Clinimix E 5%-20% 256 / 256 1037 / 1037 315 / 315 SOLUTION 2,000 ML @ 75 mls/hr IVC .Q24H DIPTI with M.v.i. Adult 10 ml Rx#: [id number] Cipro Premix 400 MG/200 200 / 200 200 / 200 ML 400 mg In 200 ml @ 200 mls/hr IVPB Q12H DIPTI Rx# :[id number] Diflucan 100 MG/50 ML 100 50 / 50 mg In 50 ml @ 50 mls/hr IVPB DAILY DIPTI Rx#: [id number] Flagyl Premix 500 MG/100 100 / 100 100 / 100 100 / 100 ML 500 mg In 100 ml @ 100 mls/hr IVPB Q8HR DIPTI Rx# :[id number] Potassium Chloride 10 mEq 100 / 100 300 / 300 /100mL 10 meq In 100 ml @ 100 mls/hr IVPB Q1H DIPTI Rx#:[id number] Oral 60 / 60 360 / 360 Output: Urine 1150 / 1150 600 / 600 250 / 250 Wound Drainage 10 / 10 0 / 0 0 / 0 Left Lower Abdomen 10 / 10 0 / 0 0 / 0 Other: Meal Breakfast # Bowel Movements 0 0 Weight 87.3 kg 87.3 kg Blood Glucose* 176 144 156 Patient Weight 09/19/16 23:59 Weight 87.3 kg - Labs 09/18/16 03:30 09/19/16 03:10 Diabetes panel 09/19/16 Range/Units 03:10 Sodium 137 (136-145) mEq/L Potassium 3.5 (3.5-4.5) mEq/L Chloride 102 (98-109) mEq/L Carbon Dioxide 29 (19-29) mEq/L BUN 8 (8-26) mg/dL Creatinine 0.77 (0.72-1.25) mg/dL Glucose 110 H (70-99) mg/dL Calcium 8.6 (8.6-10.8) mg/dL Calcium panel 09/19/16 Range/Units 03:10 Calcium 8.6 (8.6-10.8) mg/dL Phosphorus 3.2 (2.3-4.7) mg/dL Pituitary panel 09/19/16 Range/Units 03:10 Sodium 137 (136-145) mEq/L Potassium 3.5 (3.5-4.5) mEq/L Chloride 102 (98-109) mEq/L Carbon Dioxide 29 (19-29) mEq/L BUN 8 (8-26) mg/dL Creatinine 0.77 (0.72-1.25) mg/dL Glucose 110 H (70-99) mg/dL Calcium 8.6 (8.6-10.8) mg/dL Adrenal panel 09/19/16 Range/Units 03:10 Sodium 137 (136-145) mEq/L Potassium 3.5 (3.5-4.5) mEq/L Chloride 102 (98-109) mEq/L Carbon Dioxide 29 (19-29) mEq/L BUN 8 (8-26) mg/dL Creatinine 0.77 (0.72-1.25) mg/dL Glucose 110 H (70-99) mg/dL Calcium 8.6 (8.6-10.8) mg/dL - Attending Attestation I examined this patient and my medical decision-making was reviewed with the Resident Physician. I agree with the documented findings, disposition and treatment plan as described except to the extent set forth below. I reviewed the above assessment and evaluation with the resident present. Patient states pain has decreased. Mild to moderate RLQ pain to palpation noted. Noted mass present on examination in the RLQ consistent with the CT scan evidence of a hematoma. Continue with conservative therapy. Continue with IV abx. On TPN and clears. Awaiting return of bowel function.
[2016-09-18] MEDS: Fluconazole 100 MG/50 ML 100 MG/50 ML BAG IVPB SCH (08:57)
[2016-09-18] MEDS ORDERED: Clinimix E 5%-20% SOLUTION 2,000 ML with MVI, adult with vitamin K 10 ML IVC SCH (17:00)
[2016-09-19] MEDS: Ibuprofen 600 MG TABLET PO SCH ×4 (00:04→23:45)
[2016-09-19] MEDS: MetroNIDAZOLE 500 MG/100 ML 500 MG/100 ML BAG IVPB SCH ×4 (00:04→23:46)
[2016-09-19 04:03] LABS: BUN/Creatinine Ratio 10 (6-26); Blood Urea Nitrogen 8 mg/dL (8-26); Calcium 8.6 mg/dL (8.6-10.8); Carbon Dioxide 29 mEq/L (19-29); Chloride 102 mEq/L (98-109); Glucose 110 mg/dL (70-99); Magnesium 1.8 mg/dL (1.6-2.6); Osmolality,Calculated 283 (280-300); Phosphorous 3.2 mg/dL (2.3-4.7); Potassium 3.5 mEq/L (3.5-4.5); Sodium 137 mEq/L (136-145); eGFR For African Americans > 60 (> 60); eGFR For Non-African Americans > 60 (> 60)
[2016-09-19] MEDS: Pantoprazole 40 MG VIAL IVP SCH (05:26)
[2016-09-19] MEDS: *HR* OxyCODONE/APAP 5/325 TABLET PO PRN ×3 (08:20→20:05)
[2016-09-19] MEDS: Fluconazole 100 MG/50 ML 100 MG/50 ML BAG IVPB SCH (08:21)
--- NOTE | 2016-09-19 08:25 | General Surgery Progress Note ---
<Johnnie Avalos - Last Filed: 09/19/16 12:39> Date of Encounter: 09/19/16 Time of Encounter: 08:32 - Assessment and Plan (1) Acute appendicitis Current Visit: Yes Status: Inactive Postop day #7 status post Laparoscopic Appendectomy Pain is well controlled at this time - Dilaudid, Percocet Kidney function - Cr 0.77 Advanced to full liquid diet. Still no appetite present. 2 bowel movements were noted. Holding his Colace for today. TPN at goal 75. Discontinued his IV fluids Encouraged ICS and ambulation as tolerated. MAGI drain to bulb suction - 30cc output Supportive care and management. Continue to monitor for progressively worsening abdominal pain We will continue Flagyl, Cipro and fluconazole. Disposition - We will continue the current treatment plan as we await the return of his appetite to be able to wean off TPN. Qualifiers: Acute appendicitis type: with localized peritonitis Qualified Code(s): K35.3 - Acute appendicitis with localized peritonitis (2) Postoperative anemia Current Visit: Yes Status: Acute Hgb trend from 10.3->7.8>7.4>8.1>7.9>7.5>7.2. Asymptomatic at this time and is likely dilution effect from I&Os. Last 24- hour I/O balance yielded +2300. Vital signs stable. Rechecking CBC tomorrow morning (3) Leukocytosis Current Visit: Yes Status: Acute Trending back down 8.6>11.8>12.8>11.8. Rechecking CBC tomorrow morning Qualifiers: Leukocytosis type: unspecified Qualified Code(s): D72.829 - Elevated white blood cell count, unspecified (4) Abdominal pain Current Visit: No Status: Inactive See above. Qualifiers: Abdominal location: lower abdomen, unspecified Qualified Code(s): R10.30 - Lower abdominal pain, unspecified (5) Depressed mood Current Visit: Yes Status: Acute Patient was started on Celexa on Tuesday. (6) At risk for nutrition deficiency Current Visit: Yes Status: Acute TPN at goal of 70 per hour. No appetite right now. Advance diet to full liquids. (7) Hypokalemia Current Visit: Yes Status: Acute Potassium was 3.5 this morning after 40 mEq 2 were given yesterday. Continue to follow. (8) Postoperative fever Current Visit: Yes Status: Resolved Resolved (9) Hypotension Current Visit: Yes Status: Acute Blood pressure well controlled. Asymptomatic at this time. Qualifiers: Hypotension type: unspecified hypotension type Qualified Code(s): I95.9 - Hypotension, unspecified Subjective Patient reports: still having pain, pain is less, voiding w/o difficulty, flatus , bowel movement (2), nausea, afebrile Narrative: Patient is walking around room comfortably this morning. He states that thought of food makes him nauseous. Denies any appetite. He voices his understanding that he needs to be able to eat to be discharged. Objective Vital Signs - Last 8 Hours Temp Pulse Resp BP Pulse Ox 09/19/16 06:43 99.4 F 101 16 155/94 98 09/19/16 04:13 98.9 F 97 17 137/83 96 Intake and Output 09/18/16 09/19/16 09/19/16 23:59 07:59 15:59 Intake Total 716 / 716 1637 / 1637 Output Total 1160 / 1160 600 / 600 Balance -444 / -444 1037 / 1037 Intake: IV Fluids 656 / 656 1637 / 1637 Clinimix E 5%-20% 256 / 256 1037 / 1037 SOLUTION 2,000 ML @ 75 mls/hr IVC .Q24H DIPTI with M.v.i. Adult 10 ml Rx#: [id number] Cipro Premix 400 MG/200 200 / 200 200 / 200 ML 400 mg In 200 ml @ 200 mls/hr IVPB Q12H DIPTI Rx# :[id number] Flagyl Premix 500 MG/100 100 / 100 100 / 100 ML 500 mg In 100 ml @ 100 mls/hr IVPB Q8HR DIPTI Rx# :[id number] Potassium Chloride 10 mEq 100 / 100 300 / 300 /100mL 10 meq In 100 ml @ 100 mls/hr IVPB Q1H DIPTI Rx#:[id number] Oral 60 / 60 Output: Urine 1150 / 1150 600 / 600 Wound Drainage 10 / 10 0 / 0 Left Lower Abdomen 10 / 10 0 / 0 Other: # Bowel Movements 0 Weight 87.3 kg Blood Glucose* 176 144 Patient Weight 09/19/16 23:59 Weight 87.3 kg - General physical appearance well developed, well nourished, no distress - Eyes normal ocular movement - ENT atraumatic, normocephalic - Neck Neck exam: trachea midline - Respiratory normal expansion, normal respiratory effort, clear to auscultation - Cardiovascular Cardiovascular exam: Present: RRR - Abdomen Abdomen: Present: bowel sounds present, soft, tender, wound (MAGI drain intact) Abdominal Tenderness: RLQ, LLQ - Incision Incision: Present: clean and dry - Integumentary other (Warm and dry) - Neurologic CN 2-12 grossly intact - Psychiatric oriented to time, oriented to person, oriented to place, speech is normal, memory intact - Labs 09/18/16 03:30 09/19/16 03:10 BMP 09/19/16 Range/Units 03:10 Sodium 137 (136-145) mEq/L Potassium 3.5 (3.5-4.5) mEq/L Chloride 102 (98-109) mEq/L Carbon Dioxide 29 (19-29) mEq/L BUN 8 (8-26) mg/dL Creatinine 0.77 (0.72-1.25) mg/dL Glucose 110 H (70-99) mg/dL Calcium 8.6 (8.6-10.8) mg/dL Vital Signs Temp Pulse Resp BP Pulse Ox 09/19/16 06:43 99.4 F 101 16 155/94 98 09/19/16 04:13 98.9 F 97 17 137/83 96 09/18/16 23:52 99.3 F 99 18 146/90 93 09/18/16 21:00 95 09/18/16 19:18 98.9 F 105 16 146/88 95 09/18/16 15:13 98 09/18/16 14:39 99.0 F 101 16 146/89 98 09/18/16 10:45 97 09/18/16 10:35 98.4 F 90 16 147/92 97 Intake and Output 09/18/16 09/19/16 09/19/16 23:59 07:59 15:59 Intake Total 716 / 716 1637 / 1637 Output Total 1160 / 1160 600 / 600 Balance -444 / -444 1037 / 1037 Intake: IV Fluids 656 / 656 1637 / 1637 Clinimix E 5%-20% 256 / 256 1037 / 1037 SOLUTION 2,000 ML @ 75 mls/hr IVC .Q24H DIPTI with M.v.i. Adult 10 ml Rx#: [id number] Cipro Premix 400 MG/200 200 / 200 200 / 200 ML 400 mg In 200 ml @ 200 mls/hr IVPB Q12H DIPTI Rx# :[id number] Flagyl Premix 500 MG/100 100 / 100 100 / 100 ML 500 mg In 100 ml @ 100 mls/hr IVPB Q8HR DIPTI Rx# :[id number] Potassium Chloride 10 mEq 100 / 100 300 / 300 /100mL 10 meq In 100 ml @ 100 mls/hr IVPB Q1H DIPTI Rx#:[id number] Oral 60 / 60 Output: Urine 1150 / 1150 600 / 600 Wound Drainage 10 / 10 0 / 0 Left Lower Abdomen 10 / 10 0 / 0 Other: # Bowel Movements 0 Weight 87.3 kg Blood Glucose* 176 144 Patient Weight 09/19/16 23:59 Weight 87.3 kg - VTE Documentation of Mechanical Device: Intermittent pneumatic compression device Consult Discharge Plan - Plan Additional Instructions: pcp requested Referrals: Jacqueline Aparicio CNP [Advanced Practice Nurse] - 09/20/16 10:30 am Akira Shaffer MD [Primary Care Provider] - 12/13/16 1:00 pm (,s) <Abhilash Nickerson M - Last Filed: 09/20/16 12:19> Date of Encounter: 09/20/16 Objective Vital Signs - Last 8 Hours Temp Pulse Resp BP Pulse Ox 09/20/16 10:49 100.2 F H 105 16 151/80 98 09/20/16 05:02 99.5 F 100 17 143/91 96 Intake and Output 09/19/16 09/20/16 09/20/16 23:59 07:59 15:59 Intake Total 703 / 703 1004 / 1004 1190 / 1190 Output Total 1050 / 1050 20 / 20 Balance 703 / 703 -46 / -46 1170 / 1170 Intake: IV Fluids 703 / 703 1004 / 1004 150 / 150 Clinimix E 5%-20% 603 / 603 704 / 704 SOLUTION 2,000 ML @ 75 mls/hr IVC .Q24H DIPTI with M.v.i. Adult 10 ml Rx#: [id number] Cipro Premix 400 MG/200 200 / 200 ML 400 mg In 200 ml @ 200 mls/hr IVPB Q12H DIPTI Rx# :[id number] Diflucan 100 MG/50 ML 100 50 / 50 mg In 50 ml @ 50 mls/hr IVPB DAILY DIPTI Rx#: [id number] Flagyl Premix 500 MG/100 100 / 100 100 / 100 100 / 100 ML 500 mg In 100 ml @ 100 mls/hr IVPB Q8HR DIPTI Rx# :[id number] Oral 0 / 0 0 / 0 1040 / 1040 Output: Urine 1050 / 1050 0 / 0 Wound Drainage 0 / 0 20 / 20 Left Lower Abdomen 0 / 0 Other: Meal Full Percent of Meal Consumed 5% Stool Size Moderate Stool Consistency formed Stool Characteristics Normal for Patient Stool Color Brown # Voids 1 # Bowel Movements 1 0 0 Weight 82.3 kg Blood Glucose* 141 163 149 Patient Weight 09/20/16 23:59 Weight 82.3 kg - Labs 09/20/16 03:20 09/20/16 03:20 Diabetes panel 09/20/16 Range/Units 03:20 Sodium 137 (136-145) mEq/L Potassium 3.5 (3.5-4.5) mEq/L Chloride 102 (98-109) mEq/L Carbon Dioxide 29 (19-29) mEq/L BUN 11 (8-26) mg/dL Creatinine 0.73 (0.72-1.25) mg/dL Glucose 122 H (70-99) mg/dL Calcium 8.2 L (8.6-10.8) mg/dL Calcium panel 09/20/16 Range/Units 03:20 Calcium 8.2 L (8.6-10.8) mg/dL Phosphorus 3.6 (2.3-4.7) mg/dL Pituitary panel 09/20/16 Range/Units 03:20 Sodium 137 (136-145) mEq/L Potassium 3.5 (3.5-4.5) mEq/L Chloride 102 (98-109) mEq/L Carbon Dioxide 29 (19-29) mEq/L BUN 11 (8-26) mg/dL Creatinine 0.73 (0.72-1.25) mg/dL Glucose 122 H (70-99) mg/dL Calcium 8.2 L (8.6-10.8) mg/dL Adrenal panel 09/20/16 Range/Units 03:20 Sodium 137 (136-145) mEq/L Potassium 3.5 (3.5-4.5) mEq/L Chloride 102 (98-109) mEq/L Carbon Dioxide 29 (19-29) mEq/L BUN 11 (8-26) mg/dL Creatinine 0.73 (0.72-1.25) mg/dL Glucose 122 H (70-99) mg/dL Calcium 8.2 L (8.6-10.8) mg/dL - Attending Attestation I examined this patient and my medical decision-making was reviewed with the Resident Physician. I agree with the documented findings, disposition and treatment plan as described except to the extent set forth below. I reviewed the above assessment and evaluation with the resident. Patient states that he feels overall better. Increased mobility. Appetite is slowly returning. Noted hemoglobin decreased but this is related to the patient's positive fluid balance. Continue to monitor. Follow WBC. Continue IV antibiotics.
[2016-09-19] MEDS ORDERED: Clinimix E 5%-20% SOLUTION 2,000 ML with MVI, adult with vitamin K 10 ML IVC SCH (17:00)
[2016-09-19 17:39] LABS: Basophils % 0.1 %; Eosinophils # 0.1 K/mcL (0.0-0.6); Hematocrit 22.6 % (37.5-50.1); Hemoglobin 7.5 g/dL (12.9-16.9); Immature Granulocytes % 0.8 % (0-4); Immature Platelets 1.7 % (1.1-6.1); Lymphocytes # 1.1 K/mcL (0.6-4.6); Lymphocytes % 7.9 %; Mean Corpuscular HGB Conc 33.2 g/dL (31.6-35.5); Mean Corpuscular Hemoglobin 30.2 pg (28.0-33.3); Mean Corpuscular Volume 91.1 fL (83.0-100.0); Monocytes % 7.3 %; Neutrophils # 11.9 K/mcL (1.6-8.9); Platelet Count 702 K/mcL (140-400); Red Blood Count 2.48 M/mcL (4.19-5.50); Red Cell Distribution Width 12.5 % (11.5-14.5); Segmented Neutrophils % 82.9 %
[2016-09-20 03:45] LABS: Basophils % 0.1 %; Eosinophils # 0.2 K/mcL (0.0-0.6); Eosinophils % 1.3 %; Hematocrit 20.7 % (37.5-50.1); Hemoglobin 7.1 g/dL (12.9-16.9); Immature Granulocytes % 1.2 % (0-4); Lymphocytes # 1.5 K/mcL (0.6-4.6); Lymphocytes % 9.6 %; Mean Corpuscular HGB Conc 34.3 g/dL (31.6-35.5); Mean Corpuscular Hemoglobin 31.3 pg (28.0-33.3); Mean Corpuscular Volume 91.2 fL (83.0-100.0); Mean Platelet Volume 9.3 fL (9.4-12.4); Monocytes # 1.3 K/mcL (0.0-1.3); Monocytes % 8.2 %; Neutrophils # 12.4 K/mcL (1.6-8.9); Platelet Count 678 K/mcL (140-400); Red Blood Count 2.27 M/mcL (4.19-5.50); Red Cell Distribution Width 12.8 % (11.5-14.5); Segmented Neutrophils % 79.6 %
[2016-09-20 04:00] LABS: BUN/Creatinine Ratio 15 (6-26); Blood Urea Nitrogen 11 mg/dL (8-26); Calcium 8.2 mg/dL (8.6-10.8); Carbon Dioxide 29 mEq/L (19-29); Chloride 102 mEq/L (98-109); Glucose 122 mg/dL (70-99); Magnesium 1.7 mg/dL (1.6-2.6); Osmolality,Calculated 285 (280-300); Phosphorous 3.6 mg/dL (2.3-4.7); Potassium 3.5 mEq/L (3.5-4.5); Sodium 137 mEq/L (136-145); eGFR For African Americans > 60 (> 60); eGFR For Non-African Americans > 60 (> 60)
[2016-09-20] MEDS: Pantoprazole 40 MG VIAL IVP SCH (05:54)
--- NOTE | 2016-09-20 08:41 | General Surgery Progress Note ---
Date of Encounter: 09/20/16 Time of Encounter: 08:38 - Assessment and Plan (1) Acute appendicitis Current Visit: Yes Status: Resolved Postop day #8 status post Laparoscopic Appendectomy Pain is controlled at this time. Full liquid diet. Tolerating well but still no appetite present. TPN at goal 75. 2 bowel movements were noted. MAGI drain to bulb suction - 10cc output We will continue Flagyl (Day 5), Cipro (Day 3) and Diflucan (Day 3) Encouraged ICS and ambulation as tolerated. Supportive care and management. Continue to monitor for progressively worsening abdominal pain. CT Abd and Pelvis ordered today to r/o abscess foramtion, small bowel injury, ileus Qualifiers: Acute appendicitis type: with localized peritonitis Qualified Code(s): K35.3 - Acute appendicitis with localized peritonitis (2) Postoperative anemia Current Visit: Yes Status: Acute Hgb trend from 10.3>7.8>7.4>8.1>7.9>7.5>7.2>7.5>7.1 Asymptomatic at this time and is likely dilution effect from I&Os. Last 24- hour I/O balance yielded +3000. Vital signs stable. Rechecking CBC tomorrow morning (3) Leukocytosis Current Visit: Yes Status: Acute Trending 8.6>11.8>12.8>11.8>14.3>15.5 Rechecking CBC tomorrow morning CT Abd and Pelvis ordered today to r/o abscess formation, small bowel injury, ileus Qualifiers: Leukocytosis type: unspecified Qualified Code(s): D72.829 - Elevated white blood cell count, unspecified (4) Abdominal pain Current Visit: No Status: Acute See above. Qualifiers: Abdominal location: lower abdomen, unspecified Qualified Code(s): R10.30 - Lower abdominal pain, unspecified (5) Depressed mood Current Visit: Yes Status: Acute Patient was started on Celexa on Tuesday. (6) At risk for nutrition deficiency Current Visit: Yes Status: Acute TPN at goal of 70 per hour. Patient continues to deny strong appetite Tolerating and finishing his full liquid diet. No nausea or vomiting. We will continue his current diet and keep his TPN angle. Likely transition to half TPN tomorrow. (7) Hypokalemia Current Visit: Yes Status: Acute Potassium stable at 3.5. Continue to follow. (8) Postoperative fever Current Visit: Yes Status: Resolved Resolved (9) Hypotension Current Visit: Yes Status: Resolved Blood pressure well controlled. Asymptomatic at this time. Qualifiers: Hypotension type: unspecified hypotension type Qualified Code(s): I95.9 - Hypotension, unspecified Subjective Patient reports: feels better, pain is less, tolerating liquids well, flatus, bowel movement (2, loose), afebrile, other (Patient did not sleep well last night and is requesting assistance. Still denies a strong appetite but is finishing his trays.) Objective Vital Signs - Last 8 Hours Temp Pulse Resp BP Pulse Ox 09/20/16 05:02 99.5 F 100 17 143/91 96 Intake and Output 09/19/16 09/20/16 09/20/16 23:59 07:59 15:59 Intake Total 703 / 703 1004 / 1004 Output Total 1050 / 1050 Balance 703 / 703 -46 / -46 Intake: IV Fluids 703 / 703 1004 / 1004 Clinimix E 5%-20% 603 / 603 704 / 704 SOLUTION 2,000 ML @ 75 mls/hr IVC .Q24H DIPTI with M.v.i. Adult 10 ml Rx#: [id number] Cipro Premix 400 MG/200 200 / 200 ML 400 mg In 200 ml @ 200 mls/hr IVPB Q12H DIPTI Rx# :[id number] Flagyl Premix 500 MG/100 100 / 100 100 / 100 ML 500 mg In 100 ml @ 100 mls/hr IVPB Q8HR DIPTI Rx# :[id number] Oral 0 / 0 0 / 0 Output: Urine 1050 / 1050 Wound Drainage 0 / 0 Left Lower Abdomen 0 / 0 Other: Stool Size Moderate Stool Consistency formed Stool Characteristics Normal for Patient Stool Color Brown # Voids 1 # Bowel Movements 1 0 Weight 82.3 kg Blood Glucose* 141 163 Patient Weight 09/20/16 23:59 Weight 82.3 kg - General physical appearance well developed, well nourished, no distress - Eyes normal ocular movement - ENT atraumatic, normocephalic - Neck Neck exam: trachea midline - Respiratory normal expansion, normal respiratory effort, clear to auscultation - Cardiovascular Cardiovascular exam: Present: RRR, no murmurs/rubs/gallops - Abdomen Abdomen: Present: bowel sounds present, soft, wound (MAGI drain intact) Abdominal Tenderness: RLQ, LLQ - Incision Incision: Present: clean and dry, intact - Integumentary other (Warm and dry) - Neurologic CN 2-12 grossly intact - Musculoskeletal normal gait - Psychiatric oriented to time, oriented to person, oriented to place, speech is normal, memory intact - Labs 09/20/16 03:20 09/20/16 03:20 Short CBC 09/20/16 09/19/16 Range/Units 03:20 17:08 WBC 15.5 H 14.3 H (4.3-11.1) K/mcL Hgb 7.1 L 7.5 L (12.9-16.9) g/dL Hct 20.7 L 22.6 L (37.5-50.1) % Plt Count 678 H 702 H D (140-400) K/mcL Neutrophils # 12.4 H 11.9 H (1.6-8.9) K/mcL BMP 09/20/16 Range/Units 03:20 Sodium 137 (136-145) mEq/L Potassium 3.5 (3.5-4.5) mEq/L Chloride 102 (98-109) mEq/L Carbon Dioxide 29 (19-29) mEq/L BUN 11 (8-26) mg/dL Creatinine 0.73 (0.72-1.25) mg/dL Glucose 122 H (70-99) mg/dL Calcium 8.2 L (8.6-10.8) mg/dL Vital Signs Temp Pulse Resp BP Pulse Ox 09/20/16 05:02 99.5 F 100 17 143/91 96 09/19/16 23:37 98.5 F 99 17 155/94 99 09/19/16 19:02 99.3 F 95 17 132/86 95 09/19/16 15:02 100.9 F H 97 18 144/84 94 09/19/16 10:36 99.2 F 94 16 148/90 97 Intake and Output 09/19/16 09/20/16 09/20/16 23:59 07:59 15:59 Intake Total 703 / 703 1004 / 1004 Output Total 1050 / 1050 Balance 703 / 703 -46 / -46 Intake: IV Fluids 703 / 703 1004 / 1004 Clinimix E 5%-20% 603 / 603 704 / 704 SOLUTION 2,000 ML @ 75 mls/hr IVC .Q24H DIPTI with M.v.i. Adult 10 ml Rx#: [id number] Cipro Premix 400 MG/200 200 / 200 ML 400 mg In 200 ml @ 200 mls/hr IVPB Q12H DIPTI Rx# :[id number] Flagyl Premix 500 MG/100 100 / 100 100 / 100 ML 500 mg In 100 ml @ 100 mls/hr IVPB Q8HR DIPTI Rx# :[id number] Oral 0 / 0 0 / 0 Output: Urine 1050 / 1050 Wound Drainage 0 / 0 Left Lower Abdomen 0 / 0 Other: Stool Size Moderate Stool Consistency formed Stool Characteristics Normal for Patient Stool Color Brown # Voids 1 # Bowel Movements 1 0 Weight 82.3 kg Blood Glucose* 141 163 Patient Weight 09/20/16 23:59 Weight 82.3 kg - VTE Documentation of Mechanical Device: Intermittent pneumatic compression device Consult Discharge Plan - Plan Additional Instructions: pcp requested Referrals: Jacqueline Aparicio CNP [Advanced Practice Nurse] - 09/20/16 10:30 am Akira Shaffer MD [Primary Care Provider] - 12/13/16 1:00 pm (,s)
[2016-09-20] MEDS: MetroNIDAZOLE 500 MG/100 ML 500 MG/100 ML BAG IVPB SCH ×3 (08:55→23:17)
[2016-09-20] MEDS: Fluconazole 100 MG/50 ML 100 MG/50 ML BAG IVPB SCH (08:56)
[2016-09-20] MEDS: Ibuprofen 600 MG TABLET PO SCH ×3 (08:57→23:16)
[2016-09-20] MEDS: Clinimix E 5%-20% SOLUTION 2,000 ML with MVI, adult with vitamin K 10 ML IVC SCH (18:37)
[2016-09-21 03:41] LABS: Basophils % 0.1 %; Eosinophils # 0.2 K/mcL (0.0-0.6); Eosinophils % 0.8 %; Hematocrit 24.3 % (37.5-50.1); Immature Granulocytes % 0.9 % (0-4); Lymphocytes # 1.7 K/mcL (0.6-4.6); Mean Corpuscular HGB Conc 32.9 g/dL (31.6-35.5); Mean Corpuscular Hemoglobin 30.1 pg (28.0-33.3); Mean Corpuscular Volume 91.4 fL (83.0-100.0); Monocytes # 1.8 K/mcL (0.0-1.3); Monocytes % 8.7 %; Neutrophils # 16.9 K/mcL (1.6-8.9); Platelet Count 770 K/mcL (140-400); Red Blood Count 2.66 M/mcL (4.19-5.50); Red Cell Distribution Width 12.6 % (11.5-14.5); Segmented Neutrophils % 81.5 %
[2016-09-21 03:48] LABS: BUN/Creatinine Ratio 14 (6-26); Blood Urea Nitrogen 11 mg/dL (8-26); Calcium 8.4 mg/dL (8.6-10.8); Carbon Dioxide 27 mEq/L (19-29); Chloride 101 mEq/L (98-109); Glucose 119 mg/dL (70-99); Magnesium 1.8 mg/dL (1.6-2.6); Osmolality,Calculated 283 (280-300); Phosphorous 4.1 mg/dL (2.3-4.7); Potassium 3.4 mEq/L (3.5-4.5); Sodium 136 mEq/L (136-145); eGFR For African Americans > 60 (> 60); eGFR For Non-African Americans > 60 (> 60)
[2016-09-21] MEDS ORDERED: *HR* Metoprolol 5 MG/5 ML VIAL IVP PRN (05:11)
[2016-09-21] MEDS: Pantoprazole 40 MG VIAL IVP SCH (05:29)
[2016-09-21] MEDS: Ibuprofen 600 MG TABLET PO SCH ×2 (08:38→16:35)
[2016-09-21] MEDS: Fluconazole 100 MG/50 ML 100 MG/50 ML BAG IVPB SCH (08:39)
[2016-09-21] MEDS: MetroNIDAZOLE 500 MG/100 ML 500 MG/100 ML BAG IVPB SCH ×2 (08:40→16:37)
--- NOTE | 2016-09-21 11:19 | General Surgery Progress Note ---
Date of Encounter: 09/21/16 Time of Encounter: 10:30 - Assessment and Plan (1) Acute appendicitis Current Visit: Yes Status: Acute Postop day #9 status post Laparoscopic Appendectomy CT of abdomen and pelvis reviewed. N o evidence of extravasation of the oral contrast into the abscess cavity. There has been interval organization and mild enlargement of the multilobulated hematoma/abscess extending from the right lower abdomen into the left mid abdomen. Drain remains in place, terminating in the fluid collection in the right lower abdomen. There is gas seen within the abscess, but no extraluminal gas is identified. -IR for drain placement today Noted 10 ml dark bloody output during procedure. Placed to gravity: DO NOT flush drain; Will order cultures of fluid collected during IR drain placement. -Was NPO for procedure, may resume full liquid diet as tolerated -Continue MAGI to bulb suction Continue supportive care -Pain is well controlled at this time - will add IV toradol as pt is NPO for planned IR drain placement -We will continue Flagyl (Day 6), Cipro (Day 6) and Diflucan (Day 5) -Continue MAGI drain to bulb suction -Continue TPN at 50 ml/hr Discharge planning- home pending clinical course: once pain is well controlled, maintains bowel function, MAGI output is stabilized and is tolerating regular diet. Qualifiers: Acute appendicitis type: with localized peritonitis Qualified Code(s): K35.3 - Acute appendicitis with localized peritonitis (2) Ileus, postoperative Current Visit: Yes Status: Acute -Continue TPN Await return of bowel function and appetite. Would not recommend the patient to attempt to "force" any PO as continued lack of appetite is likely related to ileus. Will offer full liquid diet as tolerated when able after procedure (3) Postoperative anemia Current Visit: Yes Status: Acute See plan above. VSS Repeat am labs Will continue to monitor (4) At risk for nutrition deficiency Current Visit: Yes Status: Acute See plan for #1 Continue supportive treatments Repeat AM labs (5) Depressed mood Current Visit: Yes Status: Acute Continue celexa 20 mg daily. (6) Insomnia due to stress Current Visit: Yes Status: Acute Pt states insomnia d/t hospitalization. Denies insomnia at home. will add Ambien 5 mg PRN HS Subjective Patient reports: no new complaints, still having pain, pain is less, tolerating liquids well (Is drinking small amounts of liquids), voiding w/o difficulty, flatus, bowel movement (3 watery stools overnight, and 2 watery stools this am) Narrative: Donavon and his both state he is anxious to leave but continues to have no appetite and is intolerant of attempting foods and/or adequate PO hydration. He states his discomfort is controlled on the current regimen and denies nausea, but confirms indigestion. He reports continued insomnia and requests medication as well as do not disturb orders for the night. Objective Vital Signs - Last 8 Hours Temp Pulse Resp BP Pulse Ox 09/21/16 11:00 98.4 F 104 17 148/90 98 09/21/16 07:30 99.7 F H 96 16 148/93 99 09/21/16 04:54 98.9 F 99 16 164/101 95 Intake and Output 09/20/16 09/21/16 09/21/16 23:59 07:59 15:59 Intake Total 300 / 300 350 / 350 300 / 300 Output Total 0 / 0 250 / 250 Balance 300 / 300 100 / 100 300 / 300 Intake: IV Fluids 300 / 300 350 / 350 300 / 300 Cipro Premix 400 MG/200 200 / 200 200 / 200 ML 400 mg In 200 ml @ 200 mls/hr IVPB Q12H DIPTI Rx# :[id number] Intralipid 20% 250 ML @ 250 / 250 21 mls/hr IVPB MoWeFr@ 1700 DIPTI Rx#:[id number] Flagyl Premix 500 MG/100 100 / 100 100 / 100 100 / 100 ML 500 mg In 100 ml @ 100 mls/hr IVPB Q8HR DIPTI Rx# :[id number] Oral 0 / 0 Output: Urine 250 / 250 Wound Drainage 0 / 0 Left Lower Abdomen 0 / 0 Other: Percent of Meal Consumed 0% # Voids 1 Weight 80.876 kg Blood Glucose* 152 153 151 Patient Weight 09/21/16 23:59 Weight 80.876 kg - General physical appearance no distress, moderate pain - Eyes normal ocular movement - ENT normal mucosa, atraumatic, normocephalic - Neck Neck exam: trachea midline - Respiratory normal expansion, normal respiratory effort, clear to auscultation - Cardiovascular Cardiovascular exam: Present: tachycardia, regular rhythm, no murmurs/rubs/ gallops - Abdomen Abdomen: Present: bowel sounds present, soft, tender (Mildly diffuse tenderness) , wound (MAGI cyril noted with small amount of blood tinged fluid. No errythema surrounding. 2. Pigtail drain with dark red blood, consistent with hematoma) - Incision Incision: Present: clean and dry - Integumentary no rash - Neurologic CN 2-12 grossly intact - Musculoskeletal normal posture - Psychiatric oriented to time, oriented to person, oriented to place - Labs 09/21/16 03:20 09/21/16 03:20 Diabetes panel 09/21/16 Range/Units 03:20 Sodium 136 (136-145) mEq/L Potassium 3.4 L (3.5-4.5) mEq/L Chloride 101 (98-109) mEq/L Carbon Dioxide 27 (19-29) mEq/L BUN 11 (8-26) mg/dL Creatinine 0.76 (0.72-1.25) mg/dL Glucose 119 H (70-99) mg/dL Calcium 8.4 L (8.6-10.8) mg/dL Calcium panel 09/21/16 Range/Units 03:20 Calcium 8.4 L (8.6-10.8) mg/dL Phosphorus 4.1 (2.3-4.7) mg/dL Pituitary panel 09/21/16 Range/Units 03:20 Sodium 136 (136-145) mEq/L Potassium 3.4 L (3.5-4.5) mEq/L Chloride 101 (98-109) mEq/L Carbon Dioxide 27 (19-29) mEq/L BUN 11 (8-26) mg/dL Creatinine 0.76 (0.72-1.25) mg/dL Glucose 119 H (70-99) mg/dL Calcium 8.4 L (8.6-10.8) mg/dL Adrenal panel 09/21/16 Range/Units 03:20 Sodium 136 (136-145) mEq/L Potassium 3.4 L (3.5-4.5) mEq/L Chloride 101 (98-109) mEq/L Carbon Dioxide 27 (19-29) mEq/L BUN 11 (8-26) mg/dL Creatinine 0.76 (0.72-1.25) mg/dL Glucose 119 H (70-99) mg/dL Calcium 8.4 L (8.6-10.8) mg/dL - VTE Documentation of Mechanical Device: Intermittent pneumatic compression device Consult Discharge Plan - Plan Additional Instructions: pcp requested Referrals: Jacqueline Aparicio CNP [Advanced Practice Nurse] - 09/20/16 10:30 am Akira Shaffer MD [Primary Care Provider] - 12/13/16 1:00 pm (,s)
[2016-09-21 11:27] LABS: INR 1.4; Prothrombin Time 15.7 Seconds (9.4-12.1)
[2016-09-21] MEDS: Ketorolac 15 MG/ML VIAL IVP SCH ×2 (12:59→18:39)
[2016-09-21] MEDS: *HR* HYDROmorphone (PF) 1 MG/ML SYRINGE IVP PRN ×2 (16:50→21:39)
[2016-09-21] MEDS ORDERED: Clinimix E 5%-20% SOLUTION 2,000 ML with MVI, adult with vitamin K 10 ML IVC SCH (17:00)
[2016-09-21] MEDS: Clinimix E 5%-20% SOLUTION 2,000 ML with MVI, adult with vitamin K 10 ML IVC SCH (19:57)
[2016-09-22] MEDS: Ketorolac 15 MG/ML VIAL IVP SCH ×3 (00:29→12:54)
[2016-09-22] MEDS: MetroNIDAZOLE 500 MG/100 ML 500 MG/100 ML BAG IVPB SCH ×2 (00:29→08:19)
[2016-09-22] MEDS: Ibuprofen 600 MG TABLET PO SCH ×2 (00:31→08:18)
[2016-09-22] MEDS: *HR* HYDROmorphone (PF) 1 MG/ML SYRINGE IVP PRN ×2 (01:46→08:19)
[2016-09-22] MEDS: *HR* OxyCODONE/APAP 5/325 TABLET PO PRN (05:58)
[2016-09-22] MEDS: Pantoprazole 40 MG VIAL IVP SCH (05:58)
[2016-09-22] MEDS: Fluconazole 100 MG/50 ML 100 MG/50 ML BAG IVPB SCH (08:19)
[2016-09-22 10:29] LABS: Basophils % 0.2 %; Eosinophils # 0.3 K/mcL (0.0-0.6); Eosinophils % 1.8 %; Hematocrit 24.8 % (37.5-50.1); Hemoglobin 8.2 g/dL (12.9-16.9); Lymphocytes # 1.6 K/mcL (0.6-4.6); Mean Corpuscular HGB Conc 33.1 g/dL (31.6-35.5); Mean Corpuscular Hemoglobin 30.3 pg (28.0-33.3); Mean Corpuscular Volume 91.5 fL (83.0-100.0); Mean Platelet Volume 9.1 fL (9.4-12.4); Monocytes # 1.3 K/mcL (0.0-1.3); Monocytes % 8.1 %; Neutrophils # 12.8 K/mcL (1.6-8.9); Platelet Count 802 K/mcL (140-400); Red Blood Count 2.71 M/mcL (4.19-5.50); Red Cell Distribution Width 12.8 % (11.5-14.5); Segmented Neutrophils % 78.9 %
[2016-09-22 10:38] LABS: BUN/Creatinine Ratio 21 (6-26); Blood Urea Nitrogen 17 mg/dL (8-26); Calcium 8.3 mg/dL (8.6-10.8); Carbon Dioxide 27 mEq/L (19-29); Chloride 101 mEq/L (98-109); Glucose 114 mg/dL (70-99); Osmolality,Calculated 280 (280-300); Potassium 3.6 mEq/L (3.5-4.5); Sodium 134 mEq/L (136-145); eGFR For African Americans > 60 (> 60); eGFR For Non-African Americans > 60 (> 60)
[2016-09-22 11:03] VITALS: BP 119/75
[2016-09-22 11:37] LABS: Magnesium 1.6 mg/dL (1.6-2.6); Phosphorous 4.4 mg/dL (2.3-4.7)
--- NOTE | 2016-09-22 11:40 | Discharge Summary ---
Date of Encounter: 09/22/16 Time of Encounter: 11:30 - Discharge Diagnosis (1) Acute appendicitis Priority: Primary Status: Resolved Qualifiers: Acute appendicitis type: with localized peritonitis Qualified Code(s): K35.3 - Acute appendicitis with localized peritonitis (2) Leukocytosis Priority: Secondary Status: Acute Comments: Resolving Qualifiers: Leukocytosis type: unspecified Qualified Code(s): D72.829 - Elevated white blood cell count, unspecified (3) Postoperative anemia Priority: Secondary Status: Acute (4) Depressed mood Priority: Secondary Status: Acute (5) Ileus, postoperative Priority: Secondary Status: Resolved - Discharge Medications Prescriptions: OxyCODONE/APAP 5/325 [Percocet 5/325 MG] 1 each PO Q4HR PRN #40 tab PRN Reason: Pain Ondansetron ODT [Zofran ODT] 4 mg SL Q6HR PRN #30 tab.rapdis PRN Reason: Nausea And Vomiting Ibuprofen [Motrin] 800 mg PO Q8HR #50 tablet Ciprofloxacin [Cipro] 500 mg PO BID #14 tablet Citalopram [CeleXA] 20 mg PO DAILY #30 tab Ferrous Sulfate [Iron] 325 mg PO BID #28 capsule.er Fluconazole [Diflucan] 100 mg PO DAILY #5 tablet metroNIDAZOLE [Flagyl] 500 mg PO BID #28 tablet Home Medications: Azelaic Acid [Finacea] 1 appl TP DAILY PRN 09/12/16 [History] Multivitamin [Multi-Day Vitamins] 1 tab PO DAILY 09/12/16 [History] Valsartan/Hydrochlorothiazide [Diovan Hct 80-12.5 mg Tablet] 1 tab PO DAILY [History] Ciprofloxacin [Cipro] 500 mg PO BID #14 tablet 09/22/16 [Rx] Citalopram [CeleXA] 20 mg PO DAILY #30 tab 09/22/16 [Rx] Ferrous Sulfate [Iron] 325 mg PO BID #28 capsule.er 09/22/16 [Rx] Fluconazole [Diflucan] 100 mg PO DAILY #5 tablet 09/22/16 [Rx] Ibuprofen [Motrin] 800 mg PO Q8HR #50 tablet 09/22/16 [Rx] Ondansetron ODT [Zofran ODT] 4 mg SL Q6HR PRN #30 tab.rapdis 09/22/16 [Rx] OxyCODONE/APAP 5/325 [Percocet 5/325 MG] 1 each PO Q4HR PRN #40 tab 09/22/16 [Rx ] metroNIDAZOLE [Flagyl] 500 mg PO BID #28 tablet 09/22/16 [Rx] Allergies/Adverse Reactions: Allergies No Known Allergies Allergy (Verified 09/11/16 15:35) General Surgery Exam Initial Vital Signs Temp Pulse Resp BP Pulse Ox 102.9 F H 98 14 166/108 100 09/11/16 19:13 09/11/16 19:13 09/11/16 19:13 09/11/16 19:13 09/11/16 19:13 - General physical appearance well developed, no distress, no pain - Eyes normal ocular movement - ENT normal mucosa, atraumatic, normocephalic - Neck trachea midline - Respiratory normal respiratory effort, clear to auscultation - Cardiovascular Cardiovascular exam: Present: RRR - Abdomen Abdomen general surgery: Present: bowel sounds present, soft, tender (minimal, expected tenderness), wound (Surgical MAGI with no output noted; Pigtail drain with old hematoma noted (140ml noted since placement)) - Incision Incision: Present: clean and dry, intact - Integumentary Integumentary general surgery: Present: warm and dry - Neurologic Present: CN 2-12 grossly intact - Psychiatric Psychiatric general surgery: Present: A&Ox3 Date of admission: 09/14/16 11:19 Primary care physician: Akira Shaffer MD Consults: 09/17/16 08:12 PICC Consult [Consult to Invasive Line Access Team] [CONS] Routine Reason for Consult: PICC line placement Line Type: PICC PICC line indications: Parental nutrition Time Notified: 08:13 Call Completed: Yes 09/17/16 08:14 consult to cardiac technician [Consult to Nutrition] [CONS] Routine Comment: TPN- total fluid rate will be TPN goal Consulting Provider: NUTRITION Reason for Dietary Consult: TPN Start and Manage 09/17/16 10:13 Consult to Invasive Line Access Team [CONS] Routine Reason for Consult: Picc Line Insertion Line Type: PICC 09/21/16 10:05 Consult to Interventional Radiology [CONS] Stat Consulting Provider: Radiology Interventional Cols Reason for Consult: Please evaluate for pigtail drain placement to abdominal hematoma/abscess Time Notified: 10:07 Call Completed: Yes Discharging clinician: Shahid Holman (Babar Melgoza) Anticipated date of discharge: 09/22/16 - Patient Status Disposition: Home, Self-Care Condition: Good Functional capacity at discharge: independent ambulation Overall status at discharge: patient is progressing back to baseline - Discharge Instructions Follow Up With: Jacqueline Aparicio CNP [Advanced Practice Nurse] - 09/20/16 10:30 am Akira Shaffer MD [Primary Care Provider] - 12/13/16 1:00 pm (,s) Cassandra Melgoza CNP [Advanced Practice Nurse] - 10/04/16 9:45 am (surgical follow-up) Additional Instructions: pcp requested #1 may shower, no tub bath or swimming until cleared per surgeon #2 wash incisions with soap and water and pat dry daily in the shower #3 no lifting, pushing, pulling more than 15 pounds for the next 2 weeks #4 no driving until off narcotics for 24 hours and able to safely react in the car #5 may climb stairs Pigtail drain- wash around the drain with soap and water in the shower, pat dry daily. Apply a new 4 x 4 gauze and tape to secure daily. Empty drain 2 times daily and as needed. Record output and bring records to follow-up appointment on 10/04/2016 with surgical nurse practitioner. - Diet and Activity Activity: other (See additional instructions above) Diet: advance to your usual diet - Hospital Course Hospital course: Mr. Posada is a 56 year old male who presented to the hospital with abdominal pain. He was found to have acute appendicitis. He was started on IV antibiotics and taken to the operating room for a laparoscopic appendectomy. He was found to have an acute perforated appendicitis. He did have a surgical drain placed. He did have postoperative bleeding from his surgical staple line. This was controlled by his surgical drain. He had a complicated postoperative course. He did experience a postoperative ileus and was treated with conservative measures. He was maintained on bowel rest and did have TPN therapy started for nutritional support. He was also maintained on IV antibiotics postoperatively for fecal contamination. He did have a repeat CT scan complete which demonstrated a fluid collection within the intra-abdominal cavity consistent with old hematoma as well as a possible small bowel injury. The patient was maintained on conservative treatments. His antibiotics were changed to ciprofloxacin and Flagyl and Diflucan was added. His physical examination continued improve however he continued to have a rising white count and low-grade fevers. His CAT scan was again repeated and demonstrated a continued fluid collection which was not connecting with the surgical drain. There was no further evidence of small bowel injury. Interventional radiology was consulted for pigtail drain placement. With placement of pigtail drain, the patient states that his pain has improved and his appetite has also improved today. He is tolerating a soft diet without nausea or vomiting. His white blood cell count is trending to normal. His vital signs are stable and he is afebrile. We will discontinue his TPN therapy and begin discharge planning to transition to home. We will transition him to oral antibiotics and plan for outpatient follow-up in the next 10-14 days. - Time Spent with Patient Total time spent providing and/or coordinating discharge services: Less than 30 minutes Labs on day of discharge: Labs from last 24 hours 09/22/16 09/22/16 09/22/16 10:10 10:10 09:01 WBC 16.3 H RBC 2.71 L Hgb 8.2 L Hct 24.8 L MCV 91.5 MCH 30.3 MCHC 33.1 RDW 12.8 Plt Count 802 H MPV 9.1 L Immature Gran % 1.0 Seg Neutrophils % 78.9 Lymphocytes % 10.0 Monocytes % 8.1 Eosinophils % 1.8 Basophils % 0.2 Neutrophils # 12.8 H Lymphocytes # 1.6 Monocytes # 1.3 Eosinophils # 0.3 Basophils # 0.0 Sodium 134 L Potassium 3.6 Chloride 101 Carbon Dioxide 27 BUN 17 Creatinine 0.80 Est GFR ( Amer) > 60 Est GFR (Non-Af Amer) > 60 BUN/Creatinine Ratio 21 Glucose 114 H POC Glucose 118 H Calculated Osmolality 280 Calcium 8.3 L 09/22/16 09/22/16 09/21/16 04:50 00:18 20:44 WBC RBC Hgb Hct MCV MCH MCHC RDW Plt Count MPV Immature Gran % Seg Neutrophils % Lymphocytes % Monocytes % Eosinophils % Basophils % Neutrophils # Lymphocytes # Monocytes # Eosinophils # Basophils # Sodium Potassium Chloride Carbon Dioxide BUN Creatinine Est GFR ( Amer) Est GFR (Non-Af Amer) BUN/Creatinine Ratio Glucose POC Glucose 131 H 139 H 138 H Calculated Osmolality Calcium 09/21/16 15:51 WBC RBC Hgb Hct MCV MCH MCHC RDW Plt Count MPV Immature Gran % Seg Neutrophils % Lymphocytes % Monocytes % Eosinophils % Basophils % Neutrophils # Lymphocytes # Monocytes # Eosinophils # Basophils # Sodium Potassium Chloride Carbon Dioxide BUN Creatinine Est GFR ( Amer) Est GFR (Non-Af Amer) BUN/Creatinine Ratio Glucose POC Glucose 133 H Calculated Osmolality Calcium Preliminary micro results at discharge 09/21/16 12:30 Wound Culture - Preliminary Abdomen Gram Negative Thanh - Impressions ITS Impressions Abdomen/Pelvis CT 09/16/16 09:30 IMPRESSION: 1. The patient is status post appendectomy where there is a surgical drain noted along the left pericolic gutter, extending into the right lower quadrant of the abdomen. There are areas of hemorrhage noted in the right lower quadrant of the abdomen, right side of the pelvis, as well as a focal hematoma along the left mid abdomen measuring 6.1 x 4.3 cm. Additionally, there is leak of contrast from a loop of small bowel in the right lower quadrant of the abdomen (series 2; image 99, 102), extending into the right lower quadrant of the abdomen, concerning for bowel injury. 2. Atherosclerotic disease. 3. There are new small bilateral pleural effusions with associated bibasilar atelectasis. These results were discussed with Dr. Mcgraw at 10:46 a.m. on 09/16/2016. D/ / 09/16/2016 10:42:03 Lev Coffey MD / Paulette Sutton Interpreting Provider: Lev Coffey MD Abdomen/Pelvis CT 09/20/16 17:00 IMPRESSION: 1. There has been interval organization and mild enlargement of the multilobulated hematoma/abscess extending from the right lower abdomen into the left mid abdomen. Drain remains in place, terminating in the fluid collection in the right lower abdomen. 2. Oral contrast is present within the large and small bowel of the right lower abdomen, and there is no evidence of extravasation of the oral contrast into the abscess cavity. 3. Although there is gas within the abscess, no other areas of extraluminal gas are identified. 4. Small bilateral pleural effusions, left greater than right, with adjacent airspace disease, similar to decreased when compared to the previous exam. D/ / Eugene Valadez MD / Eugene Valadez MD Interpreting Provider: Eugene Valadez MD Retroperitoneal Abscess Drainage 09/21/16 00:00 IMPRESSION: Successful CT guided placement of peritoneal abscess drainage catheter. D/ / Pablo Sandhu MD / Pablo Sandhu MD Interpreting Provider: Pablo Sandhu MD
== END 2016-09-22 13:58 | disposition home or self-care (01) | DRG 339 ==
LOC: 3ANU → 2NENU 09-12 05:18 → 3ANU 09-17 18:37
PROVIDERS: ADMIT Surgery; ATTEND Surgery
PROC: IRDRAIN (2016-09-21 13:00)

== ENCOUNTER 2016-10-05 12:23 | Inpatient (IN) ==
[2016-10-05] MEDS ORDERED: Ondansetron 4 MG/2 ML VIAL IVP PRN (15:07)
[2016-10-05] MEDS ORDERED: Naloxone 0.4 MG/ML INJ IVP PRN (15:07)
[2016-10-05] MEDS ORDERED: Acetaminophen 325 MG TABLET PO PRN (15:12)
[2016-10-05] MEDS: 0.9 % Sodium Chloride 1,000 ML IVC SCH (16:40)
[2016-10-05] MEDS: MetroNIDAZOLE 500 MG/100 ML 500 MG/100 ML BAG IVPB SCH ×2 (17:04→23:29)
--- NOTE | 2016-10-05 17:11 | Event Note ---
Date of Encounter: 10/05/16 Time of Encounter: 14:00 Please see H&P completed in [facility] per Babar Melgoza CNP today. Reports printed and placed in the patient's folder at the nurses station as well as in the medical record folder to be scanned into the patient's chart.
[2016-10-05] MEDS: *HR* OxyCODONE/APAP 5/325 TABLET PO PRN (17:17)
[2016-10-05] MEDS: *HR* HYDROmorphone (PF) 1 MG/ML SYRINGE IVP PRN ×2 (18:38→21:05)
[2016-10-06] MEDS: *HR* HYDROmorphone (PF) 1 MG/ML SYRINGE IVP PRN ×5 (04:13→23:59)
[2016-10-06] MEDS: *HR* OxyCODONE/APAP 5/325 TABLET PO PRN (05:53)
[2016-10-06 07:00] LABS: BUN/Creatinine Ratio 13 (6-26); Blood Urea Nitrogen 11 mg/dL (8-26); Calcium 8.8 mg/dL (8.6-10.8); Carbon Dioxide 25 mEq/L (19-29); Chloride 98 mEq/L (98-109); Glucose 101 mg/dL (70-99); Osmolality,Calculated 272 (280-300); Potassium 4.1 mEq/L (3.5-4.5); Sodium 131 mEq/L (136-145); eGFR For African Americans > 60 (> 60); eGFR For Non-African Americans > 60 (> 60)
[2016-10-06 08:55] LABS: Basophils # 0.1 K/mcL (0.0-0.2); Basophils % 0.4 %; Eosinophils # 0.1 K/mcL (0.0-0.6); Eosinophils % 0.5 %; Hematocrit 26.1 % (37.5-50.1); Hemoglobin 8.6 g/dL (12.9-16.9); Immature Granulocytes % 0.4 % (0-4); Immature Platelets 1.2 % (1.1-6.1); Lymphocytes # 1.9 K/mcL (0.6-4.6); Lymphocytes % 16.7 %; Mean Corpuscular Hemoglobin 28.1 pg (28.0-33.3); Mean Corpuscular Volume 85.3 fL (83.0-100.0); Mean Platelet Volume 8.8 fL (9.4-12.4); Monocytes # 1.3 K/mcL (0.0-1.3); Monocytes % 10.9 %; Neutrophils # 8.1 K/mcL (1.6-8.9); Platelet Count 505 K/mcL (140-400); Red Blood Count 3.06 M/mcL (4.19-5.50); Segmented Neutrophils % 71.1 %
[2016-10-06] MEDS: MetroNIDAZOLE 500 MG/100 ML 500 MG/100 ML BAG IVPB SCH (09:22)
--- NOTE | 2016-10-06 11:20 | Anesthesia Evaluation PreOp ---
Date of Encounter: 10/06/16 Time of Encounter: 11:19 - Past History Planned Operation: Dx Lap w/ Drain Placement Cardiac History: HTN (maintained on Valsatan) Pulmonary History: Denies Any Significant HX DATA PROCESSING SPECIALIST History: Denies Any Significant HX Other Medical History: Denies Any Significant HX, Other (Admitted 09/11/2016 for Lap Appy and periotonitis) Anesthesia History: No Prior Anesthetic Complications, Past Anesthesia (B- inguinal hernia repair, Lap Appy 09/11/2016 [hospitalized for 12 days]) Alcohol Use: occasionally Drug use: none Medications and Allergies Azelaic Acid [Finacea] 1 appl TP DAILY PRN 09/12/16 [History] Multivitamin [Multi-Day Vitamins] 1 tab PO DAILY 09/12/16 [History] Valsartan/Hydrochlorothiazide [Diovan Hct 80-12.5 mg Tablet] 1 tab PO DAILY [History] Ciprofloxacin [Cipro] 500 mg PO BID #14 tablet 09/22/16 [Rx] Citalopram [CeleXA] 20 mg PO DAILY #30 tab 09/22/16 [Rx] Ferrous Sulfate [Iron] 325 mg PO BID #28 capsule.er 09/22/16 [Rx] Ibuprofen [Motrin] 800 mg PO Q8HR #50 tablet 09/22/16 [Rx] OxyCODONE/APAP 5/325 [Percocet 5/325 MG] 1 each PO Q4HR PRN #40 tab 09/22/16 [Rx ] metroNIDAZOLE [Flagyl] 500 mg PO BID #14 tablet 09/22/16 [Rx] Allergies No Known Allergies Allergy (Verified 09/11/16 15:35) - Meds/Allergy Pre-op Review Medications Reviewed: Yes Allergies Reviewed: Yes Beta Blockers on Current Med List: No Anesthesia Results - Labs 10/06/16 07:55 10/06/16 05:08 Laboratory Results Laboratory Results - Imaging EKG: image reviewed Anesthesia Exam O2 Sat Height 1.73 m Weight 77.201 kg Weight 168 kg O2 Sat by Pulse Oximetry 97 O2 Sat by Pulse Oximetry 94 O2 Sat by Pulse Oximetry 96 O2 Sat by Pulse Oximetry 96 O2 Sat by Pulse Oximetry 96 O2 Sat by Pulse Oximetry 98 Vital Signs Temp Pulse Resp BP Pulse Ox 98.6 F 94 15 104/69 98 10/05/16 14:26 10/05/16 14:26 10/05/16 14:26 10/05/16 14:26 10/05/16 14:26 - HEENT Pupil (Motor): Pupils equal, EOMI Mallampati: II Teeth: Normal Oral Opening: Greater than 3 - DATA PROCESSING SPECIALIST LOC: Oriented DATA PROCESSING SPECIALIST Motor: Normal RUE, Normal LUE, Normal RLE, Normal LLE, Normal Face DATA PROCESSING SPECIALIST Sensory: Normal: RUE, LUE, RLE, LLE, Face - Cardiac Rhythm: Regular Murmur: None - Pulmonary Breath Sounds: right Clear Anesthesia Assess/Plan ASA Score: 3 Modified [place] Scale for Level of Consciousness: Drowsy, but responsive to commands Anesthetic Plan: General Monitoring Plan: Standard Monitors Recovery Plan: PACU Anes Supervising Prov Stmt: Pt seen/evaluated, R&B discussed, questions answered and consent obtained. Doreen Jansen MD
[2016-10-06] MEDS: 0.9 % Sodium Chloride 1,000 ML IVC SCH (12:21)
[2016-10-06] MEDS ORDERED: *HR* Promethazine 25 MG/ML VIAL IVP PRN (13:48)
[2016-10-06] MEDS ORDERED: *HR* HYDROmorphone (PF) 1 MG/ML SYRINGE IVP PRN (13:48)
[2016-10-06] MEDS ORDERED: *HR* Labetalol 20 MG/4 ML SYRINGE IVP PRN (13:48)
[2016-10-06] MEDS ORDERED: *HR* Propofol 200 MG/20 ML VIAL IVP ONE (13:49)
[2016-10-06] MEDS ORDERED: *HR* Rocuronium Bromide 50 MG/5 ML VIAL ONE (13:50)
[2016-10-06] MEDS ORDERED: Ondansetron 4 MG/2 ML VIAL ONE (13:50)
[2016-10-06] MEDS ORDERED: Lidocaine -MPF 2% 2 ML VIAL ONE (13:50)
[2016-10-06] MEDS ORDERED: *HR* FentaNYL (PF) 100 MCG/2 ML VIAL ONE ×2 (13:50→14:38)
[2016-10-06] MEDS ORDERED: *HR* Midazolam HCl 2 MG/2 ML VIAL ONE (13:50)
[2016-10-06] MEDS ORDERED: Dexamethasone 4 MG/ML VIAL ONE (13:50)
[2016-10-06] MEDS ORDERED: *HR* Succinylcholine 200 MG/10 ML VIAL IVP ONE (13:50)
[2016-10-06] MEDS ORDERED: Lidocaine -MPF 4% 5 ML AMPUL ONE (14:02)
[2016-10-06] MEDS ORDERED: *HR* Phenylephrine 10 MG/ML VIAL ONE (14:47)
[2016-10-06] MEDS ORDERED: Neostigmine Methylsulfate 3 MG/3 ML SYRINGE ONE (15:23)
--- NOTE | 2016-10-06 15:26 | Operative Note ---
Date of procedure: 10/06/16 Pre-op diagnosis: Abscess Post-op diagnosis: same Procedure: Diagnostic laparoscopy with placement of surgical drain and lysis of adhesions times 30 minutes Anesthesia: FREDRICK Surgeon: Shahid Holman Estimated blood loss (cc): 25 Specimen: None Condition: stable Disposition: floor Procedure in Detail: After informed consent, the patient was taken the operating room placed in the supine position. After adequate sedation anesthesia the abdomen was prepped and draped. A 5 mm incision was made in the subxiphoid region. Camera was inserted. 2 other cannulas were placed. Careful dissection was carried out in the lower abdomen with lysis of adhesions times 30 minutes. Was able to gain access to 2 separate areas of loculation that were consistent with infected hematoma. A 10 mm suction device was used to evacuate the majority of the hematoma. A 19-Malay Van drain was placed back in the space and secured to the left abdominal wall with 3-0 nylon suture. The remainder of the abdomen was then evacuated skin was closed with 4-0 Vicryl suture and Dermabond.
[2016-10-06] MEDS ORDERED: *HR* HYDROmorphone 2 MG/ML SYRINGE ONE (15:34)
--- NOTE | 2016-10-06 16:16 | Anesthesia Evaluation Post Op ---
Date of Encounter: 10/06/16 Time of Encounter: 16:15 - Vital Signs Vital Signs: Vital Signs/O2 Sat/Glucose, Most Current Temp Pulse Resp BP Pulse Ox 10/06/16 16:00 125 12 114/50 97 10/06/16 15:50 112 12 103/81 97 10/06/16 15:40 98.4 F 100 12 123/79 100 nl rate upon exam - Lungs Lungs: Clear Ascult./Percussion - Airway Airway: Non-obstructed - Cardiovascular Regular Rate - Mental Status Mental Status: Alert & Oriented, Answers Appropriately - Pain Pain Scale: 2 - Nausea Vomiting Nausea Vomiting: Not Present - Hydration Hydration: Tolerates oral liquids - Discharge PostOp Status: Transfer Patient to floor
[2016-10-06] MEDS ORDERED: 0.9 % Sodium Chloride 1,000 ML IVC SCH (17:17)
[2016-10-06] MEDS ORDERED: *HR* OxyCODONE/APAP 5/325 TABLET PO PRN (17:17)
[2016-10-06] MEDS ORDERED: Acetaminophen 325 MG TABLET PO PRN (17:17)
[2016-10-06] MEDS ORDERED: Ondansetron 4 MG/2 ML VIAL IVP PRN (17:17)
[2016-10-06] MEDS ORDERED: Naloxone 0.4 MG/ML INJ IVP PRN (17:17)
[2016-10-06] MEDS ORDERED: Ipratropium/Albuterol Neb 3 ML IH ONE (20:19)
[2016-10-06] MEDS ORDERED: Acetylcysteine 10% 2 ML INHSOL IH ONE (20:23)
[2016-10-07] MEDS: MetroNIDAZOLE 500 MG/100 ML 500 MG/100 ML BAG IVPB SCH ×2 (00:01→09:47)
[2016-10-07] MEDS: *HR* HYDROmorphone (PF) 1 MG/ML SYRINGE IVP PRN ×3 (04:07→13:12)
[2016-10-07] MEDS ORDERED: Piperacillin/Tazobactam 3.375 GM in D5% in Water (Mini-Bag+) 100 ML IVPB SCH (08:43)
[2016-10-07] MEDS ORDERED: GuaiFENesin/Pseudophedrine TABLET PO PRN (11:09)
[2016-10-07 11:58] VITALS: BP 125/80
--- NOTE | 2016-10-07 14:07 | Discharge Summary ---
Date of Encounter: 10/07/16 Time of Encounter: 14:00 - Discharge Diagnosis (1) Intra-abdominal abscess Priority: Primary Status: Resolved (2) Intra-abdominal hematoma Priority: Primary Status: Resolved Qualifiers: Encounter type: subsequent encounter Qualified Code(s): S36.92XD - Contusion of unspecified intra-abdominal organ, subsequent encounter (3) Status post laparoscopic appendectomy Priority: Secondary Status: Resolved - Discharge Medications Prescriptions: Amoxicillin/Clavulanate [Augmentin] 875 mg PO BIDWM #28 tablet Home Medications: Azelaic Acid [Finacea] 1 appl TP DAILY PRN 09/12/16 [History] Multivitamin [Multi-Day Vitamins] 1 tab PO DAILY 09/12/16 [History] Valsartan/Hydrochlorothiazide [Diovan Hct 80-12.5 mg Tablet] 1 tab PO DAILY [History] Citalopram [CeleXA] 20 mg PO DAILY #30 tab 09/22/16 [Rx] Ibuprofen [Motrin] 800 mg PO Q8HR #50 tablet 09/22/16 [Rx] OxyCODONE/APAP 5/325 [Percocet 5/325 MG] 1 each PO Q4HR PRN #40 tab 09/22/16 [Rx ] metroNIDAZOLE [Flagyl] 500 mg PO BID #14 tablet 09/22/16 [Rx] Amoxicillin/Clavulanate [Augmentin] 875 mg PO BIDWM #28 tablet 10/07/16 [Rx] Allergies/Adverse Reactions: Allergies No Known Allergies Allergy (Verified 09/11/16 15:35) General Surgery Exam Initial Vital Signs Temp Pulse Resp BP Pulse Ox 98.6 F 94 15 104/69 98 10/05/16 14:26 10/05/16 14:26 10/05/16 14:26 10/05/16 14:26 10/05/16 14:26 - General physical appearance well developed, well nourished, no distress - Eyes normal ocular movement - ENT normal mucosa, atraumatic, normocephalic - Neck trachea midline - Respiratory normal respiratory effort, clear to auscultation - Cardiovascular Cardiovascular exam: Present: RRR - Abdomen Abdomen general surgery: Present: bowel sounds present, soft, tender (Expected tenderness), wound (MAGI drain to bulb suction with serosanguineous drainage noted ) - Incision Incision: Present: clean and dry, intact, open (Right lower quadrant with old drain tube site with small amount of serous segments drainage noted. No surrounding erythema or induration noted.) - Integumentary Integumentary general surgery: Present: warm and dry - Neurologic Present: CN 2-12 grossly intact - Musculoskeletal Present: normal gait, normal posture - Psychiatric Psychiatric general surgery: Present: appropriate, oriented to person, oriented to place, oriented to time, speech is normal, memory intact Date of admission: 10/05/16 15:45 Primary care physician: Akira Shaffer MD Discharging clinician: Cassandra Melgoza Anticipated date of discharge: 10/07/16 - Patient Status Disposition: Home, Self-Care Condition: Good Functional capacity at discharge: independent ambulation Overall status at discharge: patient is progressing back to baseline - Discharge Instructions Follow Up With: Akira Shaffer MD [Primary Care Provider] - Cassandra Melgoza CNP [Advanced Practice Nurse] - 10/14/16 11:45 am (surgery follow-up) Additional Instructions: #1 may shower, no tub bath or swimming until cleared per the surgical team #2 wash incisions with soap and water and pat dry daily #3 no lifting, pushing, pulling more than 15 pounds for the next 2 weeks #4 no driving until off narcotics for 24 hours and able to safely react in the car #5 may climb stairs Wound care RLQ- cleanse wound with soap and water and pat dry daily in the shower, PAC with a quarter inch plain gauze, cover with 4 x 4 dressing and tape to secure daily MAGI drain- cleanse around drain with soap and water in the shower daily, apply split 4 x 4 gauze and tape to secure daily. Empty drain 2-3 times daily and as needed if full. Record outputs and bring to follow-up appointment on 10/15/2015. - Diet and Activity Activity: other (See additional instructions above) Diet: advance to your usual diet - Hospital Course Hospital course: Mr. Posada is a 56 year old male who is status post laparoscopic appendectomy. He did have a perforated appendicitis. His postoperative course has been complicated due to postoperative bleeding and hematoma and subsequent abscess development. He is recently status post replacement of a pigtail drain per interventional radiology which was unsuccessful. He was admitted to the hospital and started on IV antibiotic therapy which included ciprofloxacin and Flagyl. He was taken to the operating room with Dr. Holman for a diagnostic laparoscopy and surgical drain placement. His antibiotics were changed to Zosyn based upon sensitivities. On postoperative day #1, he states that he is feeling much better. His pain has significantly improved. His vital signs are stable he is afebrile. He is tolerating a regular diet without nausea or vomiting. He is ambulating and voiding without difficulty. We will begin discharge planning to home with a surgical drain in place. He will be sent with Augmentin and Flagyl. We will see him back in the office in one week for evaluation. He was instructed to call the office with concerns. - Time Spent with Patient Total time spent providing and/or coordinating discharge services: Less than 30 minutes
== END 2016-10-07 15:10 | disposition home or self-care (01) | DRG 328 ==
LOC: 3BNU
PROVIDERS: ADMIT Nurse Practitioner Family; ATTEND Surgery